=== PATIENT | female | born 1970 | race Caucasian/White ===

== ENCOUNTER 2020-05-22 10:00 | Outpatient (RCR) | payer OTHER, SELFPAY ==
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
--- NOTE | 2020-05-09 08:15 | PC.NURSE ---
case opened in tx tm
--- NOTE | 2020-05-09 09:13 | PM.EVENT ---
Event Note Date of Service: 05/08/2020 Event Note: Pt reports prior to re-starting regime she was using Amberen for perimenopausal sx. She found it helpful but stopped it when she restarted her psychotropic regime. She requested interaction check which was completed with no results which contraindicated she should not continue to use it.
--- NOTE | 2020-05-09 10:51 | PC.ADMIT ---
Patient is a 49 year old female who started the PHP program d/t mood instability. She was advised by her prescriber to attend PHP as patient is unable to work d/t her symptoms. Patient has a hx of being unable to control her anger and has not been able to maintain employment. Patient was advised by her prescriber to apply for disability as looking and maintaining a job is causing patient too much stress and anxiety. Patient stated that, giving uo work is gong to be difficult however she knows this is necessary d/t her symptoms. Patient looking for structure and coping skills to help build up her self esteem. Patient is alert and oriented x4. Calm and cooperative. Denied SI at current stating, I'm not wanting to kill myself, I am getting in a year on 06/15/2021. This is the only thing I have to look forward to . Patient stated she has a hx of self harm and reports the last incident was in 1999 however started scratching the palm of her hand recently. Asked what she could do instead of harming herself and patient stated, sitting on hand, chino art, I have 4 cats I can spend time with them . Patient gave verbal permission to email her a copy of her safety plan and agrees to utilize this if needed. Patient also stated her appetite has increased and has gained 10 lbs x one month. Stated, I'm eating like a pig . Patient has been hard on herself for this. We talked about taking small steps to healthier eating. Patient did identify her fiance' as supportive including helping her to maintain her sobriety from ETOH. She is having some cravings for marijuana for Fibromyalgia pain. Last used Mar 2020. Stated she has an appointment with her PCP on Wednesday and plans on reviewing pain issues with him. She is prescribed Methocarbamol however patient stated she uses sparingly as she does not want to run out. Last filled March. Medications reconciled with patient and patients pharmacy. Pt stated she no longer takes Adderall- Last filled 2019. Assessment completed via telephone d/t program platform.
[2020-05-09 11:12] VITALS: BMI 36.3
--- NOTE | 2020-05-10 15:52 | PC.NURSE ---
Reviewed treatment plan and discussed discharge date. Planned dc date will be 05/23/20
--- NOTE | 2020-05-15 15:04 | PC.NURSE ---
I called the client at her request. She reports scratching her arm when the group was discussing losses. We discussed her feelings of sadness about her grandmother critical illness and explored ways to manage safely. She agrees to talk with her boyfriend and to work on her chino art. She denies any suicidal ideation and commits to using skills.
--- NOTE | 2020-05-16 15:59 | PC.NURSE ---
Pt asked to speak with me on the screen after the 2nd group. She asked about the criteria for an inpatient psychiatric admission, and I told her what the criteria is and asked if she felt she needed it. She said she's not sure, and that she is only staying alive because of her fiance. She shared that she has had a suicide plan for many years, but has no intent to act on it. She said she is going grocery shopping after group. We discussed possibility of going to the hospital or calling crisis instead. She said she does feel safe today, but assured me that she will call crisis or go directly to the hospital if she starts to feel unsafe. She said the groups can be triggering, as others talk about returning to work and work related stress, while she has been told she cannot work by her therapist and med provider. Pt stated she knows the number for crisis and will use it if needed. She also said she knows how to go to the hospital and what to do if needed, as she has done this many times.
--- NOTE | 2020-05-16 16:07 | HO.PHPPROGNO ---
Subjective Subjective Date of Service: 05/16/20 Reason For Visit: F31.4 Interim History: Kayla reports ongoing depressive sx/lability. Main stressor is her grandmother she reports. Currently grandmother is in hospice after a CVA. With this being the holiday season, she is anticipating many changes in family traditions which she looks forward to due to grandmothers illness and COVID. She also reports feeling left out as she has not been asked to help with grandmother's care. Continued discussion of medications initiated upon her admission. Medication Compliance: Yes Side effects from medications: No Attending Groups: Yes Review of Systems Reports behavioral changes Psychiatric: Reports anxiety, Reports behavioral changes, Reports depression, Reports hopelessness, Reports irritability, Reports anhedonia, Reports mood swings and Reports suicidal ideation (passive SI) Mental Status Exam Mental Status Exam Patient Orientation: Person, Place, Time and Situation Level of Consciousness: Awake, Appropriate and Alert Patient Behavior: Appropriate Mood Description: Withdrawn and Depressed Affect Description: Flat Patient Cognition Impaired: No Ability to Follow Directions: Excellent Speech Pattern: Clear, Appropriate and Spontaneous Speech Memory Description: Intact Hallucinations: None Delusions: Not Present Thought Process: Intact Thought Content: positive for Suicidal Ideation (passive reported) Depressive Symptoms: Increased Irritability, Loss of Int. in Activity, Hopelessness, Isolating-Friends/Family, Unhappiness and Thoughts of /Suicide (passive) Judgement: Fair Diagnostics Vital Signs (24Hr): Body Mass Index 36.3 Assessment & Plan Patient educated on: medication risk/benefits and therapeutic strategies Informed Consent: further education needed Reason for contiued partial hosp. stay Substantial Risk for: harm to self, inability to function and rapid decompensation Certification I certify that partial hospital treatment is medically necessary due to the symptoms and problems resulting from the patient's mental illness and the failure to treat the patient at the partial hospital level of care would likely result in the patient requiring inpatient psychiatric care which could not be prevented at a less intensive level of care. Greater than 50% of the session was spent on counseling and/or coordination of care Discharge Plan Discharge Attending provider: Gian Gonzales Additional Instructions: 05/16/20: Begin Abilify 2 mg hs to assist with mood stability and augmentation of antidepressant. Medications: New aripiprazole [Abilify] 2 mg tablet 2 mg PO BEDTIME Qty: 7 RF: 0 No Action Lamictal 150 mg 150 mg PO BID RF: 0 Prozac 20 mg 20 mg PO DAILY RF: 0 Topamax 100 mg 100 mg PO BEDTIME RF: 0 amitriptyline 25 mg 50 mg PO BEDTIME PRN (Reason: Insomnia) RF: 0 gabapentin 900 mg 900 mg PO TID RF: 0 hydroxyzine HCl 25 mg 25 mg PO BID RF: 0 methocarbamol 500 mg Tablet 500 mg PO BEDTIME PRN (Reason: Muscle Spasm) RF: 0 melatonin 5 mg Tablet,Chewable 5 mg PO BEDTIME PRN (Reason: Insomnia) RF: 0
--- NOTE | 2020-05-17 12:32 | PC.NURSE ---
Spoke with pt after she left treatment today due to receiving a call that her grandmother . She reported being safe currently but having fears that she will not be safe later. She reported her fiance was home at this time but he would be leaving for work. There is a roommate that lives with them that will be checking up on her. She reported her fiance will be taking the car keys with him as taking the car to drink would be part of a plan of self-harm. Provided [facility] crisis number and she agreed to be placed on alert with them.
--- NOTE | 2020-05-17 15:05 | PC.NURSE ---
I called Lo[facility] Isidro [facility] to discuss clients progress and question if PHP is too trigging for the client. I left a message to call back
--- NOTE | 2020-05-20 13:06 | PC.NURSE ---
Spoke with pt after community meeting to discuss oppositional behaviors within the meeting. Pt had refused to turn her camera on and state a goal for the day. Discussed these behaviors and why it is required to have your camera on during groups. Pt still refused. Attempted to ask if she was safe and if she could participate she became verbally aggressive, yelling at this clinician that she was struggling. Recommended going to the emergency room for a crisis evaluation. Pt adamantly refused stating she has a to go to on . She reported being safe until after the . She agreed to be taken to the emergency room immediately following the on . She reported her fiance was home with her for the next couple days and she would attempt PHP on Wednesday. She contracted for safety at least until after the on . She continues to remain on alert with [facility] Crisis.
--- NOTE | 2020-05-22 15:37 | PC.NURSE ---
Client was put on alert with [facility] crisis. In group she stated that she was not suicidal but was unsure about tomorrow when she attends her grandmother . She did state if need she would call crisis.
== END 2020-05-24 09:38 | disposition admitted as inpatient to this hospital (09) ==
LOC: HO.PHPA 10:00
PROVIDERS: Visit Provider Psychiatry & Neurology Psychiatry
DX: F31.4 Bipolar disorder, current episode depressed, severe, without psychotic features (principal)
CPT/HCPCS: 90792; 90853; 99214

== ENCOUNTER 2020-05-23 14:56 | Inpatient (IN) | payer OTHER, SELFPAY ==
[2020-05-23 15:24] VITALS: BP 153/90; PULSE 115; RESP 18; TEMP 36.9; O2SAT 98; BMI 36.3
--- NOTE | 2020-05-23 15:30 | ED.PSYCH ---
HPI - Psych General Chief Complaint: Psychiatric Symptoms Stated Complaint: crisis Time Seen by Provider: 05/23/20 15:29 Source: patient Mode of arrival: ambulatory Limitations: no limitations History of Present Illness MD complaint: feels depressed Onset (ago): day(s) (few) Duration: constant History of same: Yes Relieving factors: none Exacerbating factors: none Context: significant life stressor Associated psychiatric symptoms: depression and suicidal ideation Associated symptoms: other (scratched her Right upper arm) Treatments prior to arrival: none If self harm: admits thoughts of self harm and has plan Related Data Home Medications Medication Instructions Recorded Confirmed Lamictal 150 mg PO BID 05/09/20 05/09/20 Prozac 20 mg PO DAILY 05/09/20 05/09/20 Topamax 100 mg PO BEDTIME 05/09/20 05/09/20 amitriptyline 50 mg PO BEDTIME PRN 05/09/20 05/09/20 gabapentin 900 mg PO TID 05/09/20 05/09/20 hydroxyzine HCl 25 mg PO BID 05/09/20 05/09/20 melatonin 5 mg PO BEDTIME PRN 05/09/20 05/09/20 methocarbamol 500 mg PO BEDTIME PRN 05/09/20 05/09/20 Previous Rx's Medication Instructions Recorded aripiprazole [Abilify] 2 mg PO BEDTIME #7 tab 05/16/20 Allergies Allergy/AdvReac Type Severity Reaction Status Date / Time ibuprofen [Ibuprofen] Allergy Severe DIFFICULTY Unverified 03/21/20 17:02 BREATHING tramadol [Tramadol] Allergy Unknown RASH Unverified 03/21/20 17:02 Review of Systems Review of Systems: Constitutional : No Fever, No Chills ENT/Mouth : No Ear Pain, No Nasal Congestion, No sore throat Eyes: No Eye Pain, No Swelling, No Redness Cardiovascular : No Chest Pain, No SOB Respiratory : No Cough, No Sputum, No Dyspnea Gastrointestinal : No Nausea, No Vomiting, No Diarrhea, No Hematochezia, No Melena Genitourinary : No Dysuria, No Urinary Frequency, No Hematuria Musculoskeletal : No Myalgias Skin : No Skin Lesions, No rash Neuro : No Weakness, No Numbness, No Paresthesias, No Dizziness, No Headache Psych : positive Anxiety, positive Depression, positive SI no HI Heme/Lymph: No Lymphadenopathy Endocrine : No Polyuria, No Polydipsia All other systems reviewed and are negative [facility] Past Medical History Attestation statement: The following information was validated with the patient. Medical History Asthma Diarrhea Fibromyalgia IBS (irritable bowel syndrome) Surgical History History of partial hysterectomy Hx of appendectomy Hx of cholecystectomy Social History Social History Household Members: Significant Other Alcohol intake: former Smoking Status: Current some day smoker Smoked in Last 30 Days: Yes Use of substances other than those prescribed or required for medical reasons: Yes Substance Use Type: Marijuana Substance Use Frequency: Daily Last Used Substance: Hours (ago) Any prior treatment program specific to substance use: No Advance Directives: No Advance Directives Information Provided: Yes Physical Exam Vital Signs: Vital Signs: Last Vital Signs Temp 98.4 F 05/23/20 15:24 Pulse 115 H 05/23/20 15:24 Resp 18 05/23/20 15:24 BP 153/90 H 05/23/20 15:24 Pulse Ox 98 05/23/20 15:24 Body Mass Index 36.3 Appearance: Alert. Oriented X3. No acute distress. Eyes: Pupils equal, round and reactive to light. ENT: Pharynx normal. Neck: Normal inspection. Neck supple. CVS: Normal heart rate and rhythm. Pulses normal. Respiratory: No respiratory distress. Breath sounds normal. Abdomen: Soft and nontender. Skin: Skin warm and dry. Normal skin color. Normal skin turgor. Extremities: No lower extremity edema. No calf ttp superficial abrasions 4+ to RUE over bicep no signs of infection Neuro: Oriented X 3. No motor deficit. No sensory deficit. CN 2 -12 intact Psych: depressed, anxious, SI with plan did not disclose Course Course Course Narrative: signed out to Dr. Joyner pending [facility] and labs MDM - Psych MDM Narrative Medical decision making narrative: 49 yo female with depression here with depression and SI - needs wound care to self scratches R upper arm, labs, PO ativan for anxiety, BHN consult Discharge Plan Discharge Clinical Impression: Depression Qualifiers: Depression Type: unspecified Qualified Code(s): F32.9 - Major depressive disorder, single episode, unspecified Prescriptions: No Action Lamictal 150 mg 150 mg PO BID RF: 0 Prozac 20 mg 20 mg PO DAILY RF: 0 Topamax 100 mg 100 mg PO BEDTIME RF: 0 amitriptyline 25 mg 50 mg PO BEDTIME PRN (Reason: Insomnia) RF: 0 gabapentin 900 mg 900 mg PO TID RF: 0 hydroxyzine HCl 25 mg 25 mg PO BID RF: 0 methocarbamol 500 mg Tablet 500 mg PO BEDTIME PRN (Reason: Muscle Spasm) RF: 0 melatonin 5 mg Tablet,Chewable 5 mg PO BEDTIME PRN (Reason: Insomnia) RF: 0 aripiprazole [Abilify] 2 mg tablet 2 mg PO BEDTIME Qty: 7 RF: 0
[2020-05-23] MEDS: LORazepam 1 MG TABLET PO (16:14)
[2020-05-23 16:15] LABS: Amphetamine Screen Urine Not Detected (Not Detect); Barbiturates, Urine Not Detected (Not Detect); Benzodiazepines Screen Urine Not Detected (Not Detect); Cannabinoid Screen Urine POSITIVE (Not Detect); Cocaine Screen Urine Not Detected (Not Detect); Opiate Screen Urine Not Detected (Not Detect); Phencyclidine Screen Urine Not Detected (Not Detect)
[2020-05-23 16:34] LABS: Basophils Absolute Auto 0.1 X10*3/uL (0.0-0.2); Basophils Percent Auto 0.6 % (0-2); Eosinophils Absolute Auto 0.5 X10*3/uL (0.0-0.4); Eosinophils Percent Auto 6.4 % (0-4); Hematocrit 44.7 % (37-47); Hemoglobin 14.7 g/dl (12.0-16.0); Imm Gran Abs Auto 0.03 X10*3/uL (0.00-0.03); Imm Gran Pct Auto 0.4 % (0.0-0.4); Lymphocytes Absolute Auto 1.9 X10*3/uL (1.2-4.9); Lymphocytes Percent Auto 23.1 % (20-40); MANUAL DIFF FLAG NO; Mean Corpuscular HGB Conc 32.9 g/dl (31.0-35.0); Mean Corpuscular Hemoglobin 30.1 pg (27.0-33.0); Mean Corpuscular Volume 91.4 fL (80-98); Mean Platelet Volume 9.2 fL (9.4-12.3); Monocytes Absolute Auto 0.7 X10*3/uL (0.1-1.2); Monocytes Percent Auto 8.4 % (2-11); Neutrophils Percent Auto 61.1 % (45-73); Platelet Count 192 X10*3/uL (160-400); Red Blood Count 4.89 X10*6/uL (4.20-5.50); Red Cell Distribution Width 12.9 % (11.0-16.0); White Blood Count 8.1 X10*3/uL (4.8-10.8)
--- NOTE | 2020-05-23 16:49 | PC.NURSE ---
[facility] faxed and called, when asked for a time estimate on when they would be in to see PT [facility] stated it would be a while. Care team notified.
[2020-05-23 16:57] LABS: Alanine Aminotransferase 57 U/L (0-31); Albumin Level 3.9 g/dL (3.5-5.0); Alkaline Phosphatase 76 U/L (39-117); Anion Gap 14 (12-20); Aspartate Amino Transferase 45 U/L (5-31); Bilirubin Direct < 0.2 mg/dL (0.0-0.5); Bilirubin Total 0.6 mg/dL (0.0-1.0); Blood Urea Nitrogen 8 mg/dL (9-16); Calcium 8.5 mg/dL (8.4-10.2); Carbon Dioxide 23 mmol/L (22-29); Chloride 106 mmol/L (96-108); Creatinine Clr Calc Pharmacy 68.8; Estimated Glomerular Filt Rate 55; Glucose Random 85 mg/dL (60-115); Potassium 4.2 mmol/l (3.3-5.1); Sodium 139 mmol/L (135-145); Total Protein 6.6 g/dL (6.5-8.0)
--- NOTE | 2020-05-23 18:14 | ECG_ITS ---
Test Reason : CRISIS Blood Pressure : / mmHG Vent. Rate : 091 BPM Atrial Rate : 091 BPM P-R Int : 142 ms QRS Dur : 082 ms QT Int : 380 ms P-R-T Axes : 067 062 058 degrees QTc Int : 467 ms Normal sinus rhythm RSR' or QR pattern in V1 suggests right ventricular conduction delay Nonspecific ST abnormality Inferior leads Abnormal ECG When compared with ECG of 24-JUL-2015 14:14, Nonspecific T wave abnormality no longer evident in Inferior leads Referred By: Elizabet Joyner Electronically Signed By:MAIRA BARRAZA MD
[2020-05-23 19:08] LABS: COVID-19 Test Negative (Negative)
--- NOTE | 2020-05-23 19:08 | PC.NURSE ---
Report received. Pt resting in her room quietly. Calm and cooperative. Waiting to be transferred to .
--- NOTE | 2020-05-23 19:39 | MHC.CARE ---
CARE team notified of pt in ED awaiting crisis evaluation. [facility] consult was faxed and called to confirm, and it was reported that a clinician would not be available for a while. This casualty underwriter contacted [facility] to confirm that there wouldn't be a clinician available to assess pt within the next hour and what the reason is. [facility] materials management supervisor reported that the team was in the process of contacting pending referrals to determine whether assessments are still needed in order to assign clinicians that arrive for shift at 6pm, and that at the latest pt would be seen at 11pm. This casualty underwriter informed [facility] that due to their inability to have a clinician available to evaluate the pt within a reasonable amount of time that the evaluation will be completed by the CARE team, and the insurance company will need to be contacted. This casualty underwriter evaluated pt with plan for inpatient psychiatric admission. Pt has been accepted for admission to . Insurance authorization through [facility] in progress, awaiting callback.
[2020-05-23 21:20] VITALS: BP 126/75; PULSE 92; RESP 16; TEMP 36.2; O2SAT 97
[2020-05-23 21:24] VITALS: BP 126/82; PULSE 82; RESP 18; TEMP 37.1
[2020-05-23] MEDS: Amitriptyline HCl 25 MG TABLET 50 MG PO (22:29)
[2020-05-23] MEDS: hydrOXYzine HCL 25 MG TABLET PO (22:30)
[2020-05-23] MEDS: ARIPiprazole 2 MG TABLET PO (22:31)
[2020-05-23] MEDS: Topiramate 100 MG TABLET PO (22:31)
[2020-05-23] MEDS: Gabapentin 300 MG CAPSULE 900 MG PO (22:31)
--- NOTE | 2020-05-23 22:35 | PC.ADMIT ---
Pt is a 49 year old engaged, white female who self presented to ED seeking evaluation and treatemtn for worsening symptoms of depression marked by poor mood, anger and irritability, low motivation, loss of interest, difficulty concentrating, engagement in self harm, and increasing thoughts of suicide with plan to overdose with medications or jump from a bridge. Pt was encouraged to start treatment through PHP to prevent and inpt psych admission , which pt has been participating in for the past two weeks. Pt grandmother recently and this deeply affected pt. Pt had not taken meds in 6 mos due to no insurance and no job. Pt states she can be safe on the unit and come to staff. Pt denies AH/VH. Pt not having HI. Pt cooperative. Pt wants to get better to plan her wedding. Pt arrived on the unit at 2142. Pt shown unit and room.
[2020-05-24 06:13] VITALS: BP 126/75; PULSE 84; RESP 18; TEMP 36.4; O2SAT 98
[2020-05-24] MEDS: hydrOXYzine HCL 25 MG TABLET PO ×2 (08:55→20:50)
[2020-05-24] MEDS: FLUoxetine HCl 20 MG CAPSULE PO (08:55)
[2020-05-24] MEDS: Gabapentin 300 MG CAPSULE 900 MG PO ×3 (08:55→20:49)
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
[2020-05-24 09:16] LABS: Thyroid Stimulating Hormone 0.81 uIU/mL (0.32-4.0)
[2020-05-24 18:00] VITALS: BP 121/58; PULSE 89; TEMP 36.4
[2020-05-24] MEDS: lamoTRIgine 100 MG TABLET 300 MG PO (20:48)
[2020-05-24] MEDS: Topiramate 100 MG TABLET PO (20:50)
[2020-05-24] MEDS: ARIPiprazole 5 MG TABLET PO (20:50)
[2020-05-25 07:21] VITALS: BP 125/77; PULSE 88; TEMP 36.3
[2020-05-25] MEDS: FLUoxetine HCl 20 MG CAPSULE PO (08:59)
[2020-05-25] MEDS: Gabapentin 300 MG CAPSULE 900 MG PO ×3 (09:00→19:46)
[2020-05-25] MEDS: hydrOXYzine HCL 25 MG TABLET PO ×3 (09:01→21:47)
[2020-05-25 09:03] VITALS: O2SAT 99
[2020-05-25] MEDS: Acetaminophen 325 MG TABLET 650 MG PO (09:48)
--- NOTE | 2020-05-25 12:22 | P.PNPSI_ITS ---
Subjective Subjective Date of Service: 05/25/20 Reason For Visit: Bipolar depression Interim History: Case discussed with nursing staff Chart reviewed Vitals and labs reviewed Pt reports that she is still depressed but no longer with any SI, so at least that's gone. Pt feeling SOB and asked for albuterol inhaler which was ordered to good effect. Pt did not know Amitriptyline was a prn that needed to be asked for, she caption writer agreed to schedule it at bedtime. She reports she takes 2 [tabs] every night and asks to continue with this dose here. She also asks for lidocaine patch for fibromylagia pain. Pt is pleasant, calm and cooperative on approach; she is social in the milue and demonstrating appropriate behaviors. Medication Compliance: Yes Side effects from medications: No Attending Groups: Yes Mental Status Exam Mental Status Exam Patient Appearance: Well Grooomed (appropriately) Patient Orientation: Person, Place, Time and Situation Level of Consciousness: Awake and Appropriate Patient Behavior: Appropriate, Cooperative and Good Eye Contact Mood Description: Calm and Depressed Affect Description: Calm and Appropriate Patient Cognition Impaired: No Ability to Follow Directions: Excellent Speech Pattern: Clear Hallucinations: None Delusions: Not Present Thought Process: Intact, Goal Oriented and Linear Thought Content: positive for Intact, positive for Goal Oriented, positive for Linear and positive for Logical Depressive Symptoms: Insomnia, Increased Irritability, Muscle Pain, Unhappiness and Thoughts of /Suicide (previously but now resolved) Judgement: Fair Judgement and Insight: appears intact Diagnostics Vital Signs (24Hr): Vital Signs - 24 hr 05/24/20 18:00 05/25/20 07:21 05/25/20 09:03 Temperature 97.6 F 97.4 F Pulse Rate 89 88 Blood Pressure 121/58 L 125/77 Pulse Oximetry 99 Body Mass Index 36.3 Labs Results: 05/23/20 16:28 05/23/20 16:28 Labs: Laboratory Results - last 48 hr 05/23/20 05/23/20 05/23/20 15:35 16:28 16:28 WBC 8.1 RBC 4.89 Hgb 14.7 Hct 44.7 MCV 91.4 MCH 30.1 MCHC 32.9 RDW 12.9 Plt Count 192 MPV 9.2 L Immature Gran % (Auto) 0.4 Neut % (Auto) 61.1 Lymph % (Auto) 23.1 [place] % (Auto) 8.4 Eos % (Auto) 6.4 H Baso % (Auto) 0.6 Lymph # (Auto) 1.9 [place] # (Auto) 0.7 Eos # (Auto) 0.5 H Baso # (Auto) 0.1 Abs Immat Gran (auto) 0.03 Absolute Neuts (auto) 5.0 Absolute Nucleated RBC 0.000 Nucleated RBC % (auto) 0.0 Hold Blue Top SEE NOTE Sodium Potassium Chloride Carbon Dioxide Anion Gap BUN Creatinine Estim Creat Clear Calc Estimated GFR Random Glucose Calcium Total Bilirubin Direct Bilirubin AST ALT Alkaline Phosphatase Total Protein Albumin TSH Urine Opiates Screen Not Detected Ur Barbiturates Screen Not Detected Ur Phencyclidine Scrn Not Detected Ur Amphetamines Screen Not Detected U Benzodiazepines Scrn Not Detected Urine Cocaine Screen Not Detected U Marijuana (THC) Screen POSITIVE H COVID-19 (BABAR) COVID-[employer] [place] 05/23/20 05/23/20 05/24/20 16:28 18:37 08:04 WBC RBC Hgb Hct MCV MCH MCHC RDW Plt Count MPV Immature Gran % (Auto) Neut % (Auto) Lymph % (Auto) [place] % (Auto) Eos % (Auto) Baso % (Auto) Lymph # (Auto) [place] # (Auto) Eos # (Auto) Baso # (Auto) Abs Immat Gran (auto) Absolute Neuts (auto) Absolute Nucleated RBC Nucleated RBC % (auto) Hold Blue Top Sodium 139 Potassium 4.2 Chloride 106 Carbon Dioxide 23 Anion Gap 14 BUN 8 L Creatinine 1.06 Estim Creat Clear Calc 68.8 Estimated GFR 55 Random Glucose 85 Calcium 8.5 Total Bilirubin 0.6 Direct Bilirubin < 0.2 AST 45 H ALT 57 H Alkaline Phosphatase 76 Total Protein 6.6 Albumin 3.9 TSH 0.81 Urine Opiates Screen Ur Barbiturates Screen Ur Phencyclidine Scrn Ur Amphetamines Screen U Benzodiazepines Scrn Urine Cocaine Screen U Marijuana (THC) Screen COVID-19 (BABAR) Negative COVID-[employer] [place] See Note Medications Medications Current Medications Generic Name Dose Route Start Last Admin Trade Name Freq PRN Reason Stop Dose Admin Acetaminophen 650 mg 05/23/20 21:23 05/25/20 09:48 Acetaminophen 325 Mg Tablet PO 650 mg Q6H PRN Administration Headache/Pain Mild Scale (1-3) Al Hydroxide/Mg Hydroxide 30 ml 05/23/20 21:23 Magnesium Hydrox/Alum Hydrox 30 Ml Oral.Susp PO Q6H PRN Heartburn/Nausea Albuterol Sulfate 2 puff 05/25/20 12:04 Albuterol Sulfate 90 Mcg 8 Gm Inhaler INHALE RQ4H PRN Shortness of Breath Amitriptyline HCl 50 mg 05/25/20 21:00 Amitriptyline Hcl 25 Mg Tablet PO BEDTIME SASHA Aripiprazole 5 mg 05/24/20 21:00 05/24/20 20:50 Aripiprazole 5 Mg Tablet PO 5 mg BEDTIME SASHA Administration Fluoxetine HCl 20 mg 05/24/20 09:00 05/25/20 08:59 Fluoxetine Hcl 20 Mg Capsule PO 20 mg DAILY SASHA Administration Gabapentin 900 mg 05/23/20 21:32 05/25/20 09:00 Gabapentin 300 Mg Capsule PO 900 mg TID SASHA Administration Hydroxyzine HCl 25 mg 05/23/20 21:32 05/25/20 09:01 Hydroxyzine Hcl 25 Mg Tablet PO 25 mg BID SASHA Administration Hydroxyzine HCl 25 mg 05/23/20 21:23 Hydroxyzine Hcl 25 Mg Tablet PO BEDTIME PRN Anxiety Lamotrigine 300 mg 05/24/20 21:00 05/24/20 20:48 Lamotrigine 100 Mg Tablet PO 300 mg BEDTIME SASHA Administration Lidocaine 1 patch 05/25/20 12:07 Lidocaine 4 % Patch Adh..Patch TRANSDERMA DAILY PRN lower back pain Protocol Magnesium Hydroxide 30 ml 05/23/20 21:23 Milk Of Magnesia 30 Ml Oral.Susp PO DAILY PRN Constipation Melatonin 6 mg 05/23/20 21:34 Melatonin 3 Mg Tablet PO BEDTIME PRN Insomnia Nicotine Polacrilex 4 mg 05/23/20 21:30 Nicotine Polacrilex 2 Mg Gum BUCCAL Q2H PRN Nicotine Cravings Non-Formulary Medication 500 mg 05/23/20 21:32 Methocarbamol PO BEDTIME PRN Muscle Spasm Topiramate 100 mg 05/23/20 21:32 05/24/20 20:50 Topiramate 100 Mg Tablet PO 100 mg BEDTIME SASHA Administration Trazodone HCl 50 mg 05/23/20 21:23 Trazodone Hcl 50 Mg Tablet PO BEDTIME PRN Insomnia Allergies Allergies Allergy/AdvReac Type Severity Reaction Status Date / Time ibuprofen [Ibuprofen] Allergy Severe DIFFICULTY Unverified 03/21/20 17:02 BREATHING tramadol [Tramadol] Allergy Unknown RASH Unverified 03/21/20 17:02 Assessment & Plan Pt is a 49 female with hx of depression Pt remains depressed but SI has dissipated and she agrees that this is a sign of improved mood Added Lidocaine patch for fibromyalgia pain (currently lower back but can change location) Added albuterol inhaler for SOB Will schedule Amitriptyline at 50mg since this is what pt currently takes at home. Pt has multiple prns available for sleep otherwise, continue with primary teams treatment plan
[2020-05-25] MEDS: Albuterol Sulfate 90 MCG 8 GM INHALER 2 PUFF INHALE (13:17)
[2020-05-25] MEDS: Lidocaine 4 % Patch ADH..PATCH 1 PATCH TRANSDERMA (14:05)
[2020-05-25 18:00] VITALS: BP 113/60; PULSE 84; TEMP 36.6
[2020-05-25] MEDS: ARIPiprazole 5 MG TABLET PO (19:45)
[2020-05-25] MEDS: Amitriptyline HCl 25 MG TABLET 50 MG PO (19:46)
[2020-05-25] MEDS: lamoTRIgine 100 MG TABLET 300 MG PO (19:47)
[2020-05-25] MEDS: Topiramate 100 MG TABLET PO (19:47)
[2020-05-25] MEDS: traZODone HCL 50 MG TABLET PO (21:47)
[2020-05-25] MEDS: Melatonin 3 MG TABLET 6 MG PO (21:47)
[2020-05-26 06:00] VITALS: BP 103/58; PULSE 87; TEMP 36.4
[2020-05-26] MEDS: Gabapentin 300 MG CAPSULE 900 MG PO ×3 (08:32→21:02)
[2020-05-26] MEDS: FLUoxetine HCl 20 MG CAPSULE PO (08:33)
[2020-05-26] MEDS: hydrOXYzine HCL 25 MG TABLET PO ×3 (08:34→21:03)
[2020-05-26] MEDS: Acetaminophen 325 MG TABLET 650 MG PO (08:34)
--- NOTE | 2020-05-26 10:41 | HO.PSYCHPN ---
Subjective Subjective Date of Service: 05/26/20 Reason For Visit: Bipolar depression Interim History: Vitals reviewed: Labs reviewed Pt seen, chart reviewed and case discussed with nursing staff Pt is calm on approach. She continues to have insomnia and muscle aches due to fibromyalgia which she feels is helping maintain her depression. She re-opened an old self-inflicted wound last night out of frustration denies any SI or desire/intention to furhrter self harm (pt said it's been a long time since she superficially cut). Pt shared more about her recent hx of losing her beloved grandmother which was the trigger for this decompensation. She said her grandmother would have wanted her to go to hospital which pt did. Although she shared that upcoming holidays will be tough without her and other family due to pandemic, she also spoke about knowing she'll get over this episode. pt agreed to additional prn trazodone and additional prn Vistaril for anxiety Medication Compliance: Yes Side effects from medications: No Attending Groups: Yes Mental Status Exam Mental Status Exam Patient Appearance: Appropriate Patient Orientation: Person, Place, Time and Situation Level of Consciousness: Awake and Appropriate Patient Behavior: Appropriate, Self Manipulative and Good Eye Contact Mood Description: Calm and Depressed Affect Description: Calm, Appropriate and Depressed Ability to Follow Directions: Excellent Speech Pattern: Clear Hallucinations: None Delusions: Not Present Thought Process: Intact, Goal Oriented and Linear Thought Content: positive for Intact Depressive Symptoms: Insomnia and Unhappiness Judgement: Fair Judgement and Insight: appears intact Diagnostics Vital Signs (24Hr): Vital Signs - 24 hr 05/25/20 18:00 05/26/20 06:00 Temperature 97.9 F 97.6 F Pulse Rate 84 87 Blood Pressure 113/60 103/58 L Body Mass Index 36.3 Labs Results: 05/23/20 16:28 05/23/20 16:28 Medications Medications Current Medications Generic Name Dose Route Start Last Admin Trade Name Freq PRN Reason Stop Dose Admin Acetaminophen 650 mg 05/23/20 21:23 05/26/20 08:34 Acetaminophen 325 Mg Tablet PO 650 mg Q6H PRN Administration Headache/Pain Mild Scale (1-3) Al Hydroxide/Mg Hydroxide 30 ml 05/23/20 21:23 Magnesium Hydrox/Alum Hydrox 30 Ml Oral.Susp PO Q6H PRN Heartburn/Nausea Albuterol Sulfate 2 puff 05/25/20 12:04 05/25/20 13:17 Albuterol Sulfate 90 Mcg 8 Gm Inhaler INHALE 2 puff RQ4H PRN Administration Shortness of Breath Amitriptyline HCl 50 mg 05/25/20 21:00 05/25/20 19:46 Amitriptyline Hcl 25 Mg Tablet PO 50 mg BEDTIME SASHA Administration Aripiprazole 5 mg 05/24/20 21:00 05/25/20 19:45 Aripiprazole 5 Mg Tablet PO 5 mg BEDTIME SASHA Administration Fluoxetine HCl 20 mg 05/24/20 09:00 05/26/20 08:33 Fluoxetine Hcl 20 Mg Capsule PO 20 mg DAILY [facility]HA Administration Gabapentin 900 mg 05/23/20 21:32 05/26/20 08:32 Gabapentin 300 Mg Capsule PO 900 mg TID SASHA Administration Hydroxyzine HCl 25 mg 05/23/20 21:32 05/26/20 08:34 Hydroxyzine Hcl 25 Mg Tablet PO 25 mg BID SASHA Administration Hydroxyzine HCl 25 mg 05/23/20 21:23 05/25/20 21:47 Hydroxyzine Hcl 25 Mg Tablet PO 25 mg BEDTIME PRN Administration Anxiety Lamotrigine 300 mg 05/24/20 21:00 05/25/20 19:47 Lamotrigine 100 Mg Tablet PO 300 mg BEDTIME SASHA Administration Lidocaine 1 patch 05/25/20 14:00 05/25/20 14:05 Lidocaine 4 % Patch Adh..Patch TRANSDERMA 1 patch DAILY PRN Administration lower back pain Protocol Magnesium Hydroxide 30 ml 05/23/20 21:23 Milk Of Magnesia 30 Ml Oral.Susp PO DAILY PRN Constipation Melatonin 6 mg 05/23/20 21:34 05/25/20 21:47 Melatonin 3 Mg Tablet PO 6 mg BEDTIME PRN Administration Insomnia Nicotine Polacrilex 4 mg 05/23/20 21:30 Nicotine Polacrilex 2 Mg Gum BUCCAL Q2H PRN Nicotine Cravings Non-Formulary Medication 500 mg 05/23/20 21:32 Methocarbamol PO BEDTIME PRN Muscle Spasm Topiramate 100 mg 05/23/20 21:32 05/25/20 19:47 Topiramate 100 Mg Tablet PO 100 mg BEDTIME SASHA Administration Trazodone HCl 50 mg 05/23/20 21:23 05/25/20 21:47 Trazodone Hcl 50 Mg Tablet PO 50 mg BEDTIME PRN Administration Insomnia Allergies Allergies Allergy/AdvReac Type Severity Reaction Status Date / Time ibuprofen [Ibuprofen] Allergy Severe DIFFICULTY Unverified 03/21/20 17:02 BREATHING tramadol [Tramadol] Allergy Unknown RASH Unverified 03/21/20 17:02 Assessment & Plan Pt depressed and had a bout of superficial self harm overnight, but denies any SI or intent to further self harm saying it's now resolved. Pt does not need increased safety checks at this time. -will increase option for Trazodone including being able to take it up to 4am; pt says initial dose works but does not last and she needs more sleep to reduce symptoms of Fibromyalgia. -will add Cyclobenzaprine prn since patients home med od Methocarbamol is NF -Will increased option for Hydroxyzine by making it 25mg BID prn (up from just at bedtime prn) -Patient reports headache; she says she takes Excederin at home for headaches without any issues; she also says that she does not have an allergy to Ibuprofen, but rather her PCP/hosiery looper said to avoid it and take it seldomly due to kidney function. Pt told adjusto writer operator that PCP/hosiery looper said she could take an NSAID once in a while. PT is asking for Excedrin now; will add one time dose of aspirin in addition to pt's prn tylenol Greater than 50% of the session was spent on counseling and/or coordination of care
[2020-05-26] MEDS: Cyclobenzaprine HCl 10 MG TABLET PO ×2 (14:37→21:04)
[2020-05-26] MEDS: Aspirin 325 MG TABLET PO ×2 (14:39→14:48)
[2020-05-26] MEDS: Bacitracin Oint 14 GM TUBE 1 APPL TOPICAL ×2 (16:21→21:40)
[2020-05-26 18:00] VITALS: BP 112/68; PULSE 84; TEMP 37.1
[2020-05-26] MEDS: ARIPiprazole 5 MG TABLET PO (21:02)
[2020-05-26] MEDS: Melatonin 3 MG TABLET 6 MG PO (21:02)
[2020-05-26] MEDS: Amitriptyline HCl 25 MG TABLET 50 MG PO (21:03)
[2020-05-26] MEDS: lamoTRIgine 100 MG TABLET 300 MG PO (21:03)
[2020-05-26] MEDS: Topiramate 100 MG TABLET PO (21:04)
[2020-05-27] MEDS: hydrOXYzine HCL 25 MG TABLET PO ×3 (02:03→09:31)
[2020-05-27] MEDS: traZODone HCL 50 MG TABLET PO ×2 (02:03→23:49)
[2020-05-27 06:45] VITALS: BP 114/72; PULSE 79; RESP 18; TEMP 36.7
[2020-05-27] MEDS: Gabapentin 300 MG CAPSULE 900 MG PO ×3 (08:32→20:25)
[2020-05-27] MEDS: FLUoxetine HCl 20 MG CAPSULE PO (08:33)
[2020-05-27] MEDS: Bacitracin Oint 14 GM TUBE 1 APPL TOPICAL ×2 (08:34→20:40)
[2020-05-27] MEDS: Albuterol Sulfate 90 MCG 8 GM INHALER 2 PUFF INHALE (09:08)
[2020-05-27] MEDS: Cyclobenzaprine HCl 10 MG TABLET PO ×3 (09:13→20:23)
--- NOTE | 2020-05-27 09:14 | HO.PSYCHPN ---
Subjective Subjective Date of Service: 05/27/20 Reason For Visit: Bipolar depression Subjective Notes: Conditional Voluntary Interim History: Pt is calm on approach. She continues to have insomnia. She superficially scratched her arm. She states that she is struggling with her fiancee not being able to take Oli Antonia off and feeling that everything is ruined. We discussed her black and white thinking and how this creates problems for her. She did not find vistaril helpful and we agreed to an increase. In addition we agreed to increase abilify. Medication Compliance: Yes Side effects from medications: No Attending Groups: Yes Review of Systems Acute medical concerns: No Medical Review of Systems: unchanged Mental Status Exam Mental Status Exam Patient Appearance: Appropriate Patient Orientation: Person, Place, Time and Situation Level of Consciousness: Awake and Appropriate Patient Behavior: Appropriate and Good Eye Contact Mood Description: Calm and Depressed Affect Description: Calm, Appropriate and Depressed Ability to Follow Directions: Excellent Speech Pattern: Clear Memory Description: Intact Hallucinations: None Delusions: Not Present Thought Process: Intact, Goal Oriented and Linear Thought Content: positive for Intact, negative for Suicidal Ideation and negative for Homicidal Ideation Depressive Symptoms: Insomnia, Crying Spells, Hopelessness, Unhappiness and Thoughts of /Suicide Judgement: Fair Judgement and Insight: appears intact Diagnostics Vital Signs (24Hr): Vital Signs - 24 hr 05/26/20 18:00 05/27/20 06:45 Temperature 98.7 F 98.1 F Pulse Rate 84 79 Respiratory Rate 18 Blood Pressure 112/68 114/72 Body Mass Index 36.3 Labs Results: 05/23/20 16:28 05/23/20 16:28 Medications Medications Current Medications Generic Name Dose Route Start Last Admin Trade Name Freq PRN Reason Stop Dose Admin Acetaminophen 650 mg 05/23/20 21:23 05/26/20 08:34 Acetaminophen 325 Mg Tablet PO 650 mg Q6H PRN Administration Headache/Pain Mild Scale (1-3) Al Hydroxide/Mg Hydroxide 30 ml 05/23/20 21:23 Magnesium Hydrox/Alum Hydrox 30 Ml Oral.Susp PO Q6H PRN Heartburn/Nausea Albuterol Sulfate 2 puff 05/25/20 12:04 05/27/20 09:08 Albuterol Sulfate 90 Mcg 8 Gm Inhaler INHALE 2 puff RQ4H PRN Administration Shortness of Breath Amitriptyline HCl 50 mg 05/25/20 21:00 05/26/20 21:03 Amitriptyline Hcl 25 Mg Tablet PO 50 mg BEDTIME SASHA Administration Aripiprazole 5 mg 05/24/20 21:00 05/26/20 21:02 Aripiprazole 5 Mg Tablet PO 5 mg BEDTIME SASHA Administration Bacitracin 1 appl 05/26/20 15:00 05/27/20 08:34 Bacitracin Oint 14 Gm Tube TOPICAL 05/28/20 23:59 1 appl TID SASHA Administration Protocol Cyclobenzaprine HCl 10 mg 05/26/20 13:49 05/27/20 09:13 Cyclobenzaprine Hcl 10 Mg Tablet PO 10 mg TID PRN Administration fibromyalgia Fluoxetine HCl 20 mg 05/24/20 09:00 05/27/20 08:33 Fluoxetine Hcl 20 Mg Capsule PO 20 mg DAILY SASHA Administration Gabapentin 900 mg 05/23/20 21:32 05/27/20 08:32 Gabapentin 300 Mg Capsule PO 900 mg TID SASHA Administration Hydroxyzine HCl 25 mg 05/23/20 21:32 05/27/20 08:33 Hydroxyzine Hcl 25 Mg Tablet PO 25 mg BID SASHA Administration Hydroxyzine HCl 25 mg 05/26/20 13:53 05/27/20 02:03 Hydroxyzine Hcl 25 Mg Tablet PO 25 mg BID PRN Administration Anxiety Lamotrigine 300 mg 05/24/20 21:00 05/26/20 21:03 Lamotrigine 100 Mg Tablet PO 300 mg BEDTIME SASHA Administration Lidocaine 1 patch 05/25/20 14:00 05/25/20 14:05 Lidocaine 4 % Patch Adh..Patch TRANSDERMA 1 patch DAILY PRN Administration lower back pain Protocol Magnesium Hydroxide 30 ml 05/23/20 21:23 Milk Of Magnesia 30 Ml Oral.Susp PO DAILY PRN Constipation Melatonin 6 mg 05/23/20 21:34 05/26/20 21:02 Melatonin 3 Mg Tablet PO 6 mg BEDTIME PRN Administration Insomnia Nicotine Polacrilex 4 mg 05/23/20 21:30 Nicotine Polacrilex 2 Mg Gum BUCCAL Q2H PRN Nicotine Cravings Topiramate 100 mg 05/23/20 21:32 05/26/20 21:04 Topiramate 100 Mg Tablet PO 100 mg BEDTIME SASHA Administration Trazodone HCl 50 mg 05/23/20 21:23 05/27/20 02:03 Trazodone Hcl 50 Mg Tablet PO 50 mg BEDTIME PRN Administration Insomnia Allergies Allergies Allergy/AdvReac Type Severity Reaction Status Date / Time ibuprofen [Ibuprofen] Allergy Severe DIFFICULTY Unverified 03/21/20 17:02 BREATHING tramadol [Tramadol] Allergy Unknown RASH Unverified 03/21/20 17:02 Assessment & Plan Assessment & Plan (1) Bipolar 1 disorder, depressed, severe: Status: Acute Code(s): F31.4 - Bipolar disorder, current episode depressed, severe, without psychotic features Assessment and Plan: Increase abilify and vistaril CT treatment plan Greater than 50% of the session was spent on counseling and/or coordination of care Patient educated on: diagnosis and medication risk/benefits Informed Consent: further education needed Reason for contiued inpatient stay Substantial Risk for: harm to self and rapid decompensation
[2020-05-27] MEDS: hydrOXYzine HCL 25 MG TABLET 50 MG PO ×2 (14:01→20:25)
[2020-05-27] MEDS: Milk of Magnesia 30 ML ORAL.SUSP PO (14:01)
[2020-05-27 18:00] VITALS: BP 124/65; PULSE 98; TEMP 36.8
[2020-05-27 19:41] VITALS: BP 130/72; PULSE 88; TEMP 36.4
[2020-05-27] MEDS: ARIPiprazole 10 MG TABLET PO (20:23)
[2020-05-27] MEDS: lamoTRIgine 100 MG TABLET 300 MG PO (20:24)
[2020-05-27] MEDS: Amitriptyline HCl 25 MG TABLET 50 MG PO (20:25)
[2020-05-27] MEDS: Topiramate 100 MG TABLET PO (20:25)
[2020-05-27] MEDS: Melatonin 3 MG TABLET 6 MG PO (23:49)
[2020-05-28 05:47] VITALS: BP 111/59; PULSE 85; RESP 16; TEMP 36.6; O2SAT 98
[2020-05-28] MEDS: hydrOXYzine HCL 25 MG TABLET 50 MG PO ×4 (08:29→23:03)
[2020-05-28] MEDS: FLUoxetine HCl 20 MG CAPSULE PO (08:29)
[2020-05-28] MEDS: Gabapentin 300 MG CAPSULE 900 MG PO ×3 (08:30→21:05)
[2020-05-28] MEDS: Bacitracin Oint 14 GM TUBE 1 APPL TOPICAL ×2 (08:31→23:10)
[2020-05-28 08:33] LABS: Cholesterol 271 mg/dL; HDL Cholesterol 46 mg/dL; LDL Cholesterol Calculated 175 mg/dl; Triglycerides 252 mg/dL
[2020-05-28 08:39] LABS: Estimated Average Glucose 97 mg/dL
--- NOTE | 2020-05-28 09:19 | HO.PSYCHPN ---
Subjective Subjective Date of Service: 05/28/20 Reason For Visit: Bipolar depression Subjective Notes: Conditional Voluntary Interim History: Pt is calm on approach. She has not cut herself again. She continues to have thoughts of self harm, but is able to access some strategies to manage. She found the increase in vistaril helpful. She has tolerated the increase in abilify. She was encouraged to use her DBT skills. Medication Compliance: Yes Side effects from medications: No Attending Groups: Yes Review of Systems Acute medical concerns: No Medical Review of Systems: unchanged Mental Status Exam Mental Status Exam Patient Appearance: Appropriate Patient Orientation: Person, Place, Time and Situation Level of Consciousness: Awake and Appropriate Patient Behavior: Appropriate and Good Eye Contact Mood Description: Calm and Depressed Affect Description: Calm, Appropriate and Depressed Ability to Follow Directions: Excellent Speech Pattern: Clear Memory Description: Intact Hallucinations: None Delusions: Not Present Thought Process: Intact, Goal Oriented and Linear Thought Content: positive for Intact, negative for Suicidal Ideation and negative for Homicidal Ideation Depressive Symptoms: Insomnia, Crying Spells, Hopelessness, Unhappiness and Thoughts of /Suicide Judgement: Fair Judgement and Insight: appears intact Diagnostics Vital Signs (24Hr): Vital Signs - 24 hr 05/27/20 18:00 05/27/20 19:41 05/28/20 05:47 Temperature 98.2 F 97.6 F 97.9 F Pulse Rate 98 88 85 Respiratory Rate 16 Blood Pressure 124/65 130/72 111/59 L Pulse Oximetry 98 Body Mass Index 36.3 Labs Results: 05/23/20 16:28 05/23/20 16:28 Labs: Laboratory Results - last 48 hr 05/28/20 05/28/20 07:59 07:59 Estimat Average Glucose 97 Hemoglobin A1c % 5.0 Triglycerides 252 Cholesterol 271 LDL Cholesterol, Calc 175 HDL Cholesterol 46 Medications Medications Current Medications Generic Name Dose Route Start Last Admin Trade Name Freq PRN Reason Stop Dose Admin Acetaminophen 650 mg 05/23/20 21:23 05/26/20 08:34 Acetaminophen 325 Mg Tablet PO 650 mg Q6H PRN Administration Headache/Pain Mild Scale (1-3) Al Hydroxide/Mg Hydroxide 30 ml 05/23/20 21:23 Magnesium Hydrox/Alum Hydrox 30 Ml Oral.Susp PO Q6H PRN Heartburn/Nausea Albuterol Sulfate 2 puff 05/25/20 12:04 05/27/20 09:08 Albuterol Sulfate 90 Mcg 8 Gm Inhaler INHALE 2 puff RQ4H PRN Administration Shortness of Breath Amitriptyline HCl 50 mg 05/25/20 21:00 05/27/20 20:25 Amitriptyline Hcl 25 Mg Tablet PO 50 mg BEDTIME SASHA Administration Aripiprazole 10 mg 05/27/20 21:00 05/27/20 20:23 Aripiprazole 10 Mg Tablet PO 10 mg BEDTIME SASHA Administration Bacitracin 1 appl 05/27/20 21:00 05/28/20 08:31 Bacitracin Oint 14 Gm Tube TOPICAL 05/28/20 23:59 1 appl BID SASHA Administration Protocol Cyclobenzaprine HCl 10 mg 05/26/20 13:49 05/27/20 20:23 Cyclobenzaprine Hcl 10 Mg Tablet PO 10 mg TID PRN Administration fibromyalgia Fluoxetine HCl 20 mg 05/24/20 09:00 05/28/20 08:29 Fluoxetine Hcl 20 Mg Capsule PO 20 mg DAILY SASHA Administration Gabapentin 900 mg 05/23/20 21:32 05/28/20 08:30 Gabapentin 300 Mg Capsule PO 900 mg TID SASHA Administration Hydroxyzine HCl 50 mg 05/27/20 10:21 05/27/20 14:01 Hydroxyzine Hcl 25 Mg Tablet PO 50 mg BID PRN Administration Anxiety Hydroxyzine HCl 50 mg 05/27/20 21:00 05/28/20 08:29 Hydroxyzine Hcl 25 Mg Tablet PO 50 mg BID SASHA Administration Lamotrigine 300 mg 05/24/20 21:00 05/27/20 20:24 Lamotrigine 100 Mg Tablet PO 300 mg BEDTIME SASHA Administration Lidocaine 1 patch 05/25/20 14:00 05/25/20 14:05 Lidocaine 4 % Patch Adh..Patch TRANSDERMA 1 patch DAILY PRN Administration lower back pain Protocol Magnesium Hydroxide 30 ml 05/23/20 21:23 05/27/20 14:01 Milk Of Magnesia 30 Ml Oral.Susp PO 30 ml DAILY PRN Administration Constipation Melatonin 6 mg 05/23/20 21:34 05/27/20 23:49 Melatonin 3 Mg Tablet PO 6 mg BEDTIME PRN Administration Insomnia Nicotine Polacrilex 4 mg 05/23/20 21:30 Nicotine Polacrilex 2 Mg Gum BUCCAL Q2H PRN Nicotine Cravings Topiramate 100 mg 05/23/20 21:32 05/27/20 20:25 Topiramate 100 Mg Tablet PO 100 mg BEDTIME SASHA Administration Trazodone HCl 50 mg 05/23/20 21:23 05/27/20 23:49 Trazodone Hcl 50 Mg Tablet PO 50 mg BEDTIME PRN Administration Insomnia Allergies Allergies Allergy/AdvReac Type Severity Reaction Status Date / Time ibuprofen [Ibuprofen] Allergy Severe DIFFICULTY Unverified 03/21/20 17:02 BREATHING tramadol [Tramadol] Allergy Unknown RASH Unverified 03/21/20 17:02 Assessment & Plan Assessment & Plan (1) Bipolar 1 disorder, depressed, severe: Status: Acute Code(s): F31.4 - Bipolar disorder, current episode depressed, severe, without psychotic features Assessment and Plan: Continue current medications Encourage use of skills Greater than 50% of the session was spent on counseling and/or coordination of care Patient educated on: diagnosis and medication risk/benefits Informed Consent: further education needed Reason for contiued inpatient stay Substantial Risk for: harm to self and rapid decompensation
[2020-05-28] MEDS: Cyclobenzaprine HCl 10 MG TABLET PO ×2 (13:48→21:04)
[2020-05-28 18:00] VITALS: BP 106/59; PULSE 81; TEMP 36.4
[2020-05-28] MEDS: Amitriptyline HCl 25 MG TABLET 50 MG PO (21:03)
[2020-05-28] MEDS: lamoTRIgine 100 MG TABLET 300 MG PO (21:03)
[2020-05-28] MEDS: ARIPiprazole 10 MG TABLET PO (21:04)
[2020-05-28] MEDS: Topiramate 100 MG TABLET PO (21:05)
[2020-05-28] MEDS: Lidocaine 4 % Patch ADH..PATCH 1 PATCH TRANSDERMA (23:04)
[2020-05-29] MEDS: traZODone HCL 50 MG TABLET PO (03:34)
[2020-05-29 06:25] VITALS: BP 110/70; PULSE 92; RESP 18; TEMP 36.3
[2020-05-29] MEDS: FLUoxetine HCl 20 MG CAPSULE PO (08:32)
[2020-05-29] MEDS: Gabapentin 300 MG CAPSULE 900 MG PO ×3 (08:32→21:23)
[2020-05-29] MEDS: hydrOXYzine HCL 25 MG TABLET 50 MG PO ×2 (08:33→11:03)
--- NOTE | 2020-05-29 09:17 | P.PNPSI_ITS ---
Subjective Subjective Date of Service: 05/29/20 Reason For Visit: Bipolar depression Subjective Notes: Conditional Voluntary Interim History: Kayla has been managing and she has not harmed herself in the last 24 hours She does not feel that vistaril is helpful and we agreed to switch to klonopin. She complains of pain due to fibromyalgia but many treatment options have been exhausted. Klonopin may help Medication Compliance: Yes Side effects from medications: No Attending Groups: Yes Review of Systems Acute medical concerns: No Medical Review of Systems: unchanged Mental Status Exam Mental Status Exam Patient Appearance: Appropriate Patient Orientation: Person, Place, Time and Situation Level of Consciousness: Awake and Appropriate Patient Behavior: Appropriate and Good Eye Contact Mood Description: Calm and Depressed Affect Description: Calm, Appropriate and Depressed Ability to Follow Directions: Excellent Speech Pattern: Clear Memory Description: Intact Hallucinations: None Delusions: Not Present Thought Process: Intact, Goal Oriented and Linear Thought Content: positive for Intact, negative for Suicidal Ideation and negative for Homicidal Ideation Depressive Symptoms: Insomnia, Crying Spells, Hopelessness, Unhappiness and T houghts of /Suicide Judgement: Fair Judgement and Insight: appears intact Diagnostics Vital Signs (24Hr): Vital Signs - 24 hr 05/28/20 18:00 05/29/20 06:25 Temperature 97.6 F 97.3 F Pulse Rate 81 92 Respiratory Rate 18 Blood Pressure 106/59 L 110/70 Body Mass Index 36.3 Labs Results: 05/23/20 16:28 05/23/20 16:28 Labs: Laboratory Results - last 48 hr 05/28/20 05/28/20 07:59 07:59 Estimat Average Glucose 97 Hemoglobin A1c % 5.0 Triglycerides 252 Cholesterol 271 LDL Cholesterol, Calc 175 HDL Cholesterol 46 Medications Medications Current Medications Generic Name Dose Route Start Last Admin Trade Name Freq PRN Reason Stop Dose Admin Acetaminophen 650 mg 05/23/20 21:23 05/26/20 08:34 Acetaminophen 325 Mg Tablet PO 650 mg Q6H PRN Administration Headache/Pain Mild Scale (1-3) Al Hydroxide/Mg Hydroxide 30 ml 05/23/20 21:23 Magnesium Hydrox/Alum Hydrox 30 Ml Oral.Susp PO Q6H PRN Heartburn/Nausea Albuterol Sulfate 2 puff 05/25/20 12:04 05/27/20 09:08 Albuterol Sulfate 90 Mcg 8 Gm Inhaler INHALE 2 puff RQ4H PRN Administration Shortness of Breath Amitriptyline HCl 50 mg 05/25/20 21:00 05/28/20 21:03 Amitriptyline Hcl 25 Mg Tablet PO 50 mg BEDTIME SASHA Administration Aripiprazole 10 mg 05/27/20 21:00 05/28/20 21:04 Aripiprazole 10 Mg Tablet PO 10 mg BEDTIME SASHA Administration Cyclobenzaprine HCl 10 mg 05/26/20 13:49 05/28/20 21:04 Cyclobenzaprine Hcl 10 Mg Tablet PO 10 mg TID PRN Administration fibromyalgia Fluoxetine HCl 20 mg 05/24/20 09:00 05/29/20 08:32 Fluoxetine Hcl 20 Mg Capsule PO 20 mg DAILY SASHA Administration Gabapentin 900 mg 05/23/20 21:32 05/29/20 08:32 Gabapentin 300 Mg Capsule PO 900 mg TID SASHA Administration Hydroxyzine HCl 50 mg 05/27/20 10:21 05/28/20 23:03 Hydroxyzine Hcl 25 Mg Tablet PO 50 mg BID PRN Administration Anxiety Hydroxyzine HCl 50 mg 05/27/20 21:00 05/29/20 08:33 Hydroxyzine Hcl 25 Mg Tablet PO 50 mg BID SASHA Administration Lamotrigine 300 mg 05/24/20 21:00 05/28/20 21:03 Lamotrigine 100 Mg Tablet PO 300 mg BEDTIME SASHA Administration Lidocaine 1 patch 05/25/20 14:00 05/28/20 23:04 Lidocaine 4 % Patch Adh..Patch TRANSDERMA 1 patch DAILY PRN Administration lower back pain Protocol Magnesium Hydroxide 30 ml 05/23/20 21:23 05/27/20 14:01 Milk Of Magnesia 30 Ml Oral.Susp PO 30 ml DAILY PRN Administration Constipation Melatonin 6 mg 05/23/20 21:34 05/27/20 23:49 Melatonin 3 Mg Tablet PO 6 mg BEDTIME PRN Administration Insomnia Nicotine Polacrilex 4 mg 05/23/20 21:30 Nicotine Polacrilex 2 Mg Gum BUCCAL Q2H PRN Nicotine Cravings Topiramate 100 mg 05/23/20 21:32 05/28/20 21:05 Topiramate 100 Mg Tablet PO 100 mg BEDTIME SASHA Administration Trazodone HCl 50 mg 05/23/20 21:23 05/29/20 03:34 Trazodone Hcl 50 Mg Tablet PO 50 mg BEDTIME PRN Administration Insomnia Allergies Allergies Allergy/AdvReac Type Severity Reaction Status Date / Time ibuprofen [Ibuprofen] Allergy Severe DIFFICULTY Unverified 03/21/20 17:02 BREATHING tramadol [Tramadol] Allergy Unknown RASH Unverified 03/21/20 17:02 Assessment & Plan Assessment & Plan (1) Bipolar 1 disorder, depressed, severe: Status: Acute Code(s): F31.4 - Bipolar disorder, current episode depressed, severe, without psychotic features Assessment and Plan: Add clonazepam CT treatment plan Greater than 50% of the session was spent on counseling and/or coordination of care Patient educated on: diagnosis and medication risk/benefits Informed Consent: further education needed Reason for contiued inpatient stay Substantial Risk for: harm to self and rapid decompensation
[2020-05-29] MEDS: Cyclobenzaprine HCl 10 MG TABLET PO ×3 (09:42→21:24)
[2020-05-29] MEDS: Lidocaine 4 % Patch ADH..PATCH 1 PATCH TRANSDERMA (17:52)
[2020-05-29 18:00] VITALS: BP 146/64; PULSE 87; TEMP 36.3
[2020-05-29] MEDS: ARIPiprazole 10 MG TABLET PO (21:23)
[2020-05-29] MEDS: lamoTRIgine 100 MG TABLET 300 MG PO (21:23)
[2020-05-29] MEDS: Topiramate 100 MG TABLET PO (21:23)
[2020-05-29] MEDS: clonazePAM 1 MG TABLET PO (21:23)
[2020-05-29] MEDS: Amitriptyline HCl 25 MG TABLET 50 MG PO (21:23)
[2020-05-29] MEDS: Milk of Magnesia 30 ML ORAL.SUSP PO (21:24)
[2020-05-30 06:13] VITALS: BP 119/68; PULSE 76; RESP 16; TEMP 36.2; O2SAT 97
[2020-05-30] MEDS: Albuterol Sulfate 90 MCG 8 GM INHALER 2 PUFF INHALE (06:50)
[2020-05-30 07:00] VITALS: BMI 37.5
[2020-05-30] MEDS: clonazePAM 1 MG TABLET PO ×3 (09:26→21:48)
[2020-05-30] MEDS: Gabapentin 300 MG CAPSULE 900 MG PO ×3 (09:27→21:48)
[2020-05-30] MEDS: FLUoxetine HCl 20 MG CAPSULE PO (09:28)
[2020-05-30] MEDS: Cyclobenzaprine HCl 10 MG TABLET PO ×3 (09:28→21:48)
--- NOTE | 2020-05-30 13:38 | P.PNPSI_ITS ---
Subjective Subjective Date of Service: 05/30/20 Reason For Visit: Bipolar depression Subjective Notes: Conditional Voluntary Interim History: Kayla is feeling some improvement. Her mood is brighter and she is more engaged. She does continue to have body pain, but this is slightly less with klonopin. She has some SOB and requests flovent inhaler Medication Compliance: Yes Side effects from medications: No Attending Groups: Yes Review of Systems Acute medical concerns: No Medical Review of Systems: unchanged Mental Status Exam Mental Status Exam Patient Appearance: Appropriate Patient Orientation: Person, Place, Time and Situation Level of Consciousness: Awake and Appropriate Patient Behavior: Appropriate and Good Eye Contact Mood Description: Calm and Depressed Affect Description: Calm, Appropriate and Depressed Ability to Follow Directions: Excellent Speech Pattern: Clear Memory Description: Intact Hallucinations: None Delusions: Not Present Thought Process: Intact, Goal Oriented and Linear Thought Content: positive for Intact, negative for Suicidal Ideation and neg ative for Homicidal Ideation Depressive Symptoms: Insomnia and Crying Spells Judgement: Fair Judgement and Insight: appears intact Diagnostics Vital Signs (24Hr): Vital Signs - 24 hr 05/29/20 18:00 05/30/20 06:13 Temperature 97.3 F 97.1 F Pulse Rate 87 76 Respiratory Rate 16 Blood Pressure 146/64 H 119/68 Pulse Oximetry 97 Body Mass Index 37.5 Labs Results: 05/23/20 16:28 05/23/20 16:28 Medications Medications Current Medications Generic Name Dose Route Start Last Admin Trade Name Freq PRN Reason Stop Dose Admin Acetaminophen 650 mg 05/23/20 21:23 05/26/20 08:34 Acetaminophen 325 Mg Tablet PO 650 mg Q6H PRN Administration Headache/Pain Mild Scale (1-3) Al Hydroxide/Mg Hydroxide 30 ml 05/23/20 21:23 Magnesium Hydrox/Alum Hydrox 30 Ml Oral.Susp PO Q6H PRN Heartburn/Nausea Albuterol Sulfate 2 puff 05/25/20 12:04 05/30/20 06:50 Albuterol Sulfate 90 Mcg 8 Gm Inhaler INHALE 2 puff RQ4H PRN Administration Shortness of Breath Amitriptyline HCl 50 mg 05/25/20 21:00 05/29/20 21:23 Amitriptyline Hcl 25 Mg Tablet PO 50 mg BEDTIME SASHA Administration Aripiprazole 10 mg 05/27/20 21:00 05/29/20 21:23 Aripiprazole 10 Mg Tablet PO 10 mg BEDTIME SASHA Administration Clonazepam 1 mg 05/29/20 21:00 05/30/20 09:26 Clonazepam 1 Mg Tablet PO 1 mg TID SASHA Administration Cyclobenzaprine HCl 10 mg 05/26/20 13:49 05/30/20 09:28 Cyclobenzaprine Hcl 10 Mg Tablet PO 10 mg TID PRN Administration fibromyalgia Fluoxetine HCl 20 mg 05/24/20 09:00 05/30/20 09:28 Fluoxetine Hcl 20 Mg Capsule PO 20 mg DAILY SASHA Administration Fluticasone Propionate 2 puff 05/30/20 11:05 Fluticasone Propionate 100 Mcg Blst.W.Dev INHALE RBID [facility] Gabapentin 900 mg 05/23/20 21:32 05/30/20 09:27 Gabapentin 300 Mg Capsule PO 900 mg TID SASHA Administration Lamotrigine 300 mg 05/24/20 21:00 05/29/20 21:23 Lamotrigine 100 Mg Tablet PO 300 mg BEDTIME SASHA Administration Lidocaine 1 patch 05/25/20 14:00 05/29/20 17:52 Lidocaine 4 % Patch Adh..Patch TRANSDERMA 1 patch DAILY PRN Administration lower back pain Protocol Magnesium Hydroxide 30 ml 05/23/20 21:23 05/29/20 21:24 Milk Of Magnesia 30 Ml Oral.Susp PO 30 ml DAILY PRN Administration Constipation Melatonin 6 mg 05/23/20 21:34 05/27/20 23:49 Melatonin 3 Mg Tablet PO 6 mg BEDTIME PRN Administration Insomnia Nicotine Polacrilex 4 mg 05/23/20 21:30 Nicotine Polacrilex 2 Mg Gum BUCCAL Q2H PRN Nicotine Cravings Topiramate 100 mg 05/23/20 21:32 05/29/20 21:23 Topiramate 100 Mg Tablet PO 100 mg BEDTIME SASHA Administration Trazodone HCl 50 mg 05/23/20 21:23 05/29/20 03:34 Trazodone Hcl 50 Mg Tablet PO 50 mg BEDTIME PRN Administration Insomnia Allergies Allergies Allergy/AdvReac Type Severity Reaction Status Date / Time ibuprofen [Ibuprofen] Allergy Severe DIFFICULTY Unverified 03/21/20 17:02 BREATHING tramadol [Tramadol] Allergy Unknown RASH Unverified 03/21/20 17:02 Assessment & Plan Assessment & Plan (1) Bipolar 1 disorder, depressed, severe: Status: Acute Code(s): F31.4 - Bipolar disorder, current episode depressed, severe, without psychotic features Assessment and Plan: CT current treatment plan Greater than 50% of the session was spent on counseling and/or coordination of care Patient educated on: diagnosis and medication risk/benefits Informed Consent: further education needed Reason for contiued inpatient stay Substantial Risk for: rapid decompensation
[2020-05-30] MEDS: Amitriptyline HCl 25 MG TABLET 50 MG PO (21:48)
[2020-05-30] MEDS: ARIPiprazole 10 MG TABLET PO (21:48)
[2020-05-30] MEDS: Topiramate 100 MG TABLET PO (21:48)
[2020-05-30] MEDS: lamoTRIgine 100 MG TABLET 300 MG PO (21:48)
[2020-05-30] MEDS: Fluticasone Propionate 100 MCG BLST.W.DEV 2 PUFF INHALE (21:49)
[2020-05-30 21:55] VITALS: BP 120/76; PULSE 89; TEMP 37
[2020-05-30] MEDS: Acetaminophen 325 MG TABLET 650 MG PO (22:56)
[2020-05-30] MEDS: traZODone HCL 50 MG TABLET PO (22:57)
[2020-05-31 06:59] VITALS: BP 114/74; PULSE 85; TEMP 36.3
[2020-05-31] MEDS: Fluticasone Propionate 100 MCG BLST.W.DEV 2 PUFF INHALE (09:18)
[2020-05-31] MEDS: FLUoxetine HCl 20 MG CAPSULE PO (09:19)
[2020-05-31] MEDS: Gabapentin 300 MG CAPSULE 900 MG PO ×3 (09:19→20:13)
[2020-05-31] MEDS: clonazePAM 1 MG TABLET PO ×3 (09:19→20:13)
[2020-05-31] MEDS: Cyclobenzaprine HCl 10 MG TABLET PO ×2 (09:34→14:36)
[2020-05-31] MEDS: Albuterol Sulfate 90 MCG 8 GM INHALER 2 PUFF INHALE ×2 (09:35→14:37)
[2020-05-31] MEDS: Acetaminophen 325 MG TABLET 650 MG PO ×2 (11:56→18:08)
--- NOTE | 2020-05-31 15:01 | HO.PSYCHPN ---
Subjective Subjective Date of Service: 05/31/20 Reason For Visit: Bipolar depression Subjective Notes: Conditional Voluntary Interim History: Kayla was struggling with a flare of fibromyalgia. She also has had worse asthma. She attributes both to the weather. Her mood is improving and she is feeling that she will be ready to go home on 06/04/20, which also happens to be her birthday. Medication Compliance: Yes Side effects from medications: No Attending Groups: Yes Review of Systems Acute medical concerns: No Medical Review of Systems: unchanged Mental Status Exam Mental Status Exam Patient Appearance: Appropriate Patient Orientation: Person, Place, Time and Situation Level of Consciousness: Awake and Appropriate Patient Behavior: Appropriate and Good Eye Contact Mood Description: Calm and Depressed Affect Description: Calm, Appropriate and Depressed Ability to Follow Directions: Excellent Speech Pattern: Clear Memory Description: Intact Hallucinations: None Delusions: Not Present Thought Process: Intact, Goal Oriented and Linear Thought Content: positive for Intact, negative for Suicidal Ideation and negative for Homicidal Ideation Depressive Symptoms: Insomnia and Crying Spells Judgement: Fair Judgement and Insight: appears intact Diagnostics Vital Signs (24Hr): Vital Signs - 24 hr 05/30/20 21:55 05/31/20 06:59 Temperature 98.6 F 97.3 F Pulse Rate 89 85 Blood Pressure 120/76 114/74 Body Mass Index 37.5 Labs Results: 05/23/20 16:28 05/23/20 16:28 Medications Medications Current Medications Generic Name Dose Route Start Last Admin Trade Name Freq PRN Reason Stop Dose Admin Acetaminophen 650 mg 05/23/20 21:23 05/31/20 11:56 Acetaminophen 325 Mg Tablet PO 650 mg Q6H PRN Administration Headache/Pain Mild Scale (1-3) Al Hydroxide/Mg Hydroxide 30 ml 05/23/20 21:23 Magnesium Hydrox/Alum Hydrox 30 Ml Oral.Susp PO Q6H PRN Heartburn/Nausea Albuterol Sulfate 2 puff 05/25/20 12:04 05/31/20 14:37 Albuterol Sulfate 90 Mcg 8 Gm Inhaler INHALE 2 puff RQ4H PRN Administration Shortness of Breath Amitriptyline HCl 50 mg 05/25/20 21:00 05/30/20 21:48 Amitriptyline Hcl 25 Mg Tablet PO 50 mg BEDTIME SASHA Administration Aripiprazole 10 mg 05/27/20 21:00 05/30/20 21:48 Aripiprazole 10 Mg Tablet PO 10 mg BEDTIME SASHA Administration Clonazepam 1 mg 05/29/20 21:00 05/31/20 09:19 Clonazepam 1 Mg Tablet PO 1 mg TID SASHA Administration Cyclobenzaprine HCl 10 mg 05/26/20 13:49 05/31/20 14:36 Cyclobenzaprine Hcl 10 Mg Tablet PO 10 mg TID PRN Administration fibromyalgia Fluoxetine HCl 20 mg 05/24/20 09:00 05/31/20 09:19 Fluoxetine Hcl 20 Mg Capsule PO 20 mg DAILY SASHA Administration Fluticasone Propionate 2 puff 05/30/20 11:05 05/31/20 09:18 Fluticasone Propionate 100 Mcg Blst.W.Dev INHALE 2 puff RBID SASHA Administration Gabapentin 900 mg 05/23/20 21:32 05/31/20 14:37 Gabapentin 300 Mg Capsule PO 900 mg TID SASHA Administration Lamotrigine 300 mg 05/24/20 21:00 05/30/20 21:48 Lamotrigine 100 Mg Tablet PO 300 mg BEDTIME SASHA Administration Lidocaine 1 patch 05/25/20 14:00 05/29/20 17:52 Lidocaine 4 % Patch Adh..Patch TRANSDERMA 1 patch DAILY PRN Administration lower back pain Protocol Magnesium Hydroxide 30 ml 05/23/20 21:23 05/29/20 21:24 Milk Of Magnesia 30 Ml Oral.Susp PO 30 ml DAILY PRN Administration Constipation Melatonin 6 mg 05/23/20 21:34 05/27/20 23:49 Melatonin 3 Mg Tablet PO 6 mg BEDTIME PRN Administration Insomnia Nicotine Polacrilex 4 mg 05/23/20 21:30 Nicotine Polacrilex 2 Mg Gum BUCCAL Q2H PRN Nicotine Cravings Topiramate 100 mg 05/23/20 21:32 05/30/20 21:48 Topiramate 100 Mg Tablet PO 100 mg BEDTIME SASHA Administration Trazodone HCl 50 mg 05/23/20 21:23 05/30/20 22:57 Trazodone Hcl 50 Mg Tablet PO 50 mg BEDTIME PRN Administration Insomnia Allergies Allergies Allergy/AdvReac Type Severity Reaction Status Date / Time ibuprofen [Ibuprofen] Allergy Severe DIFFICULTY Unverified 03/21/20 17:02 BREATHING tramadol [Tramadol] Allergy Unknown RASH Unverified 09/17/20 17:02 Assessment & Plan Assessment & Plan (1) Bipolar 1 disorder, depressed, severe: Status: Acute Code(s): F31.4 - Bipolar disorder, current episode depressed, severe, without psychotic features Assessment and Plan: CT current treatment plan Greater than 50% of the session was spent on counseling and/or coordination of care Patient educated on: diagnosis and medication risk/benefits Informed Consent: further education needed Reason for contiued inpatient stay Substantial Risk for: inability to function and rapid decompensation
[2020-05-31 18:00] VITALS: BP 150/70; PULSE 86; TEMP 36.2
[2020-05-31] MEDS: Amitriptyline HCl 25 MG TABLET 50 MG PO (20:13)
[2020-05-31] MEDS: lamoTRIgine 100 MG TABLET 300 MG PO (20:13)
[2020-05-31] MEDS: ARIPiprazole 10 MG TABLET PO (20:13)
[2020-05-31] MEDS: Topiramate 100 MG TABLET PO (20:13)
[2020-05-31] MEDS: Lidocaine 4 % Patch ADH..PATCH 1 PATCH TRANSDERMA (21:03)
[2020-06-01] MEDS: Albuterol Sulfate 90 MCG 8 GM INHALER 2 PUFF INHALE ×2 (01:33→15:23)
[2020-06-01] MEDS: traZODone HCL 50 MG TABLET PO ×2 (01:54→03:53)
[2020-06-01 01:56] VITALS: BP 126/67; PULSE 102; RESP 18; TEMP 36.6; O2SAT 97
[2020-06-01 06:00] VITALS: BP 137/71; PULSE 102; RESP 18
[2020-06-01] MEDS: FLUoxetine HCl 20 MG CAPSULE PO (09:00)
[2020-06-01] MEDS: clonazePAM 1 MG TABLET PO ×3 (09:00→23:02)
[2020-06-01] MEDS: Fluticasone Propionate 100 MCG BLST.W.DEV 2 PUFF INHALE ×2 (09:01→23:06)
[2020-06-01] MEDS: Gabapentin 300 MG CAPSULE 900 MG PO ×3 (09:01→23:02)
[2020-06-01] MEDS: Cyclobenzaprine HCl 10 MG TABLET PO ×2 (09:12→15:26)
[2020-06-01] MEDS: Acetaminophen 325 MG TABLET 650 MG PO (10:23)
[2020-06-01] MEDS: Lidocaine 4 % Patch ADH..PATCH 1 PATCH TRANSDERMA ×2 (11:16→23:07)
--- NOTE | 2020-06-01 13:14 | HO.PSYCHPN ---
Subjective Subjective Date of Service: 06/01/20 Reason For Visit: Bipolar depression Subjective Notes: Conditional Voluntary Interim History: Kayla had difficulty with sleep last night but she continues with a slow and steady improvement. She has no self harm. She wants to aim for 06/04/20 discharge. Medication Compliance: Yes Side effects from medications: No Attending Groups: Yes Review of Systems Acute medical concerns: No Medical Review of Systems: unchanged Mental Status Exam Mental Status Exam Patient Appearance: Appropriate Patient Orientation: Person, Place, Time and Situation Level of Consciousness: Awake and Appropriate Patient Behavior: Appropriate and Good Eye Contact Mood Description: Calm and Depressed Affect Description: Calm, Appropriate and Depressed Ability to Follow Directions: Excellent Speech Pattern: Clear Memory Description: Intact Hallucinations: None Delusions: Not Present Thought Process: Intact, Goal Oriented and Linear Thought Content: positive for Intact, negative for Suicidal Ideation and negative for Homicidal Ideation Depressive Symptoms: Insomnia and Crying Spells Judgement: Fair Judgement and Insight: appears intact Diagnostics Vital Signs (24Hr): Vital Signs - 24 hr 05/31/20 18:00 06/01/20 01:56 06/01/20 06:00 Temperature 97.2 F 97.8 F Pulse Rate 86 102 H 102 H Respiratory Rate 18 18 Blood Pressure 150/70 H 126/67 137/71 Pulse Oximetry 97 Body Mass Index 37.5 Labs Results: 05/23/20 16:28 05/23/20 16:28 Medications Medications Current Medications Generic Name Dose Route Start Last Admin Trade Name Freq PRN Reason Stop Dose Admin Acetaminophen 650 mg 05/23/20 21:23 06/01/20 10:23 Acetaminophen 325 Mg Tablet PO 650 mg Q6H PRN Administration Headache/Pain Mild Scale (1-3) Al Hydroxide/Mg Hydroxide 30 ml 05/23/20 21:23 Magnesium Hydrox/Alum Hydrox 30 Ml Oral.Susp PO Q6H PRN Heartburn/Nausea Albuterol Sulfate 2 puff 05/25/20 12:04 06/01/20 01:33 Albuterol Sulfate 90 Mcg 8 Gm Inhaler INHALE 2 puff RQ4H PRN Administration Shortness of Breath Amitriptyline HCl 50 mg 05/25/20 21:00 05/31/20 20:13 Amitriptyline Hcl 25 Mg Tablet PO 50 mg BEDTIME SASHA Administration Aripiprazole 10 mg 05/27/20 21:00 05/31/20 20:13 Aripiprazole 10 Mg Tablet PO 10 mg BEDTIME SASHA Administration Clonazepam 1 mg 05/29/20 21:00 06/01/20 09:00 Clonazepam 1 Mg Tablet PO 1 mg TID SASHA Administration Cyclobenzaprine HCl 10 mg 05/26/20 13:49 06/01/20 09:12 Cyclobenzaprine Hcl 10 Mg Tablet PO 10 mg TID PRN Administration fibromyalgia Fluoxetine HCl 20 mg 05/24/20 09:00 06/01/20 09:00 Fluoxetine Hcl 20 Mg Capsule PO 20 mg DAILY SASHA Administration Fluticasone Propionate 2 puff 05/30/20 11:05 06/01/20 09:01 Fluticasone Propionate 100 Mcg Blst.W.Dev INHALE 2 puff RBID SASHA Administration Gabapentin 900 mg 05/23/20 21:32 06/01/20 09:01 Gabapentin 300 Mg Capsule PO 900 mg TID SASHA Administration Lamotrigine 300 mg 05/24/20 21:00 05/31/20 20:13 Lamotrigine 100 Mg Tablet PO 300 mg BEDTIME SASHA Administration Lidocaine 1 patch 05/25/20 14:00 06/01/20 11:16 Lidocaine 4 % Patch Adh..Patch TRANSDERMA 1 patch DAILY PRN Administration lower back pain Protocol Magnesium Hydroxide 30 ml 05/23/20 21:23 05/29/20 21:24 Milk Of Magnesia 30 Ml Oral.Susp PO 30 ml DAILY PRN Administration Constipation Melatonin 6 mg 05/23/20 21:34 05/27/20 23:49 Melatonin 3 Mg Tablet PO 6 mg BEDTIME PRN Administration Insomnia Nicotine Polacrilex 4 mg 05/23/20 21:30 Nicotine Polacrilex 2 Mg Gum BUCCAL Q2H PRN Nicotine Cravings Topiramate 100 mg 05/23/20 21:32 05/31/20 20:13 Topiramate 100 Mg Tablet PO 100 mg BEDTIME SASHA Administration Trazodone HCl 50 mg 05/23/20 21:23 06/01/20 03:53 Trazodone Hcl 50 Mg Tablet PO 50 mg BEDTIME PRN Administration Insomnia Allergies Allergies Allergy/AdvReac Type Severity Reaction Status Date / Time ibuprofen [Ibuprofen] Allergy Severe DIFFICULTY Unverified 03/21/20 17:02 BREATHING tramadol [Tramadol] Allergy Unknown RASH Unverified 03/21/20 17:02 Assessment & Plan Assessment & Plan (1) Bipolar 1 disorder, depressed, severe: Status: Acute Code(s): F31.4 - Bipolar disorder, current episode depressed, severe, without psychotic features Assessment and Plan: Continue current treatment plan Greater than 50% of the session was spent on counseling and/or coordination of care Patient educated on: diagnosis and medication risk/benefits Informed Consent: further education needed Reason for contiued inpatient stay Substantial Risk for: rapid decompensation
[2020-06-01] MEDS: Topiramate 100 MG TABLET PO (23:02)
[2020-06-01] MEDS: Amitriptyline HCl 25 MG TABLET 50 MG PO (23:02)
[2020-06-01] MEDS: ARIPiprazole 10 MG TABLET PO (23:02)
[2020-06-01] MEDS: lamoTRIgine 100 MG TABLET 300 MG PO (23:03)
[2020-06-01 23:09] VITALS: BP 125/65; PULSE 86; TEMP 36.4
[2020-06-02] MEDS: Albuterol Sulfate 90 MCG 8 GM INHALER 2 PUFF INHALE (02:54)
[2020-06-02] MEDS: Melatonin 3 MG TABLET 6 MG PO (02:55)
[2020-06-02] MEDS: traZODone HCL 50 MG TABLET PO (02:55)
[2020-06-02 06:12] VITALS: BP 102/58; PULSE 77; RESP 16; TEMP 36.2; O2SAT 95
[2020-06-02] MEDS: Gabapentin 300 MG CAPSULE 900 MG PO ×3 (08:47→20:38)
[2020-06-02] MEDS: FLUoxetine HCl 20 MG CAPSULE PO (08:47)
[2020-06-02] MEDS: clonazePAM 1 MG TABLET PO ×3 (08:48→20:38)
[2020-06-02] MEDS: Fluticasone Propionate 100 MCG BLST.W.DEV 2 PUFF INHALE (08:49)
[2020-06-02] MEDS: Cyclobenzaprine HCl 10 MG TABLET PO ×2 (09:36→20:39)
[2020-06-02] MEDS: Fluticasone Propionate 250 MCG BLST.W.DEV 2 PUFF INHALE ×2 (12:38→20:41)
--- NOTE | 2020-06-02 13:17 | HO.PSYCHPN ---
Subjective Subjective Date of Service: 06/02/20 Reason For Visit: Bipolar depression Subjective Notes: Conditional Voluntary Interim History: Kayla has not been sleeping well. We agreed to increase the trazodone. She is also more irritable and finding it hard to tolerate being on the inpatient unit. She requests hydroxyzine for agitation. Medication Compliance: Yes Side effects from medications: No Attending Groups: Yes Review of Systems Acute medical concerns: No Medical Review of Systems: unchanged Mental Status Exam Mental Status Exam Patient Appearance: Appropriate Patient Orientation: Person, Place, Time and Situation Level of Consciousness: Awake and Appropriate Patient Behavior: Appropriate and Good Eye Contact Mood Description: Calm and Depressed Affect Description: Calm, Appropriate and Depressed Ability to Follow Directions: Excellent Speech Pattern: Clear Memory Description: Intact Hallucinations: None Delusions: Not Present Thought Process: Intact, Goal Oriented and Linear Thought Content: positive for Intact, negative for Suicidal Ideation and negative for Homicidal Ideation Depressive Symptoms: Insomnia and Crying Spells Judgement: Fair Judgement and Insight: appears intact Diagnostics Vital Signs (24Hr): Vital Signs - 24 hr 06/01/20 23:09 06/02/20 06:12 Temperature 97.5 F 97.1 F Pulse Rate 86 77 Respiratory Rate 16 Blood Pressure 125/65 102/58 L Pulse Oximetry 95 Body Mass Index 37.5 Labs Results: 05/23/20 16:28 05/23/20 16:28 Medications Medications Current Medications Generic Name Dose Route Start Last Admin Trade Name Freq PRN Reason Stop Dose Admin Acetaminophen 650 mg 05/23/20 21:23 06/01/20 10:23 Acetaminophen 325 Mg Tablet PO 650 mg Q6H PRN Administration Headache/Pain Mild Scale (1-3) Al Hydroxide/Mg Hydroxide 30 ml 05/23/20 21:23 Magnesium Hydrox/Alum Hydrox 30 Ml Oral.Susp PO Q6H PRN Heartburn/Nausea Albuterol Sulfate 2 puff 05/25/20 12:04 06/02/20 02:54 Albuterol Sulfate 90 Mcg 8 Gm Inhaler INHALE 2 puff RQ4H PRN Administration Shortness of Breath Amitriptyline HCl 50 mg 05/25/20 21:00 06/01/20 23:02 Amitriptyline Hcl 25 Mg Tablet PO 50 mg BEDTIME SASHA Administration Aripiprazole 10 mg 05/27/20 21:00 11/28/20 23:02 Aripiprazole 10 Mg Tablet PO 10 mg BEDTIME SASHA Administration Clonazepam 1 mg 05/29/20 21:00 06/02/20 08:48 Clonazepam 1 Mg Tablet PO 1 mg TID SASHA Administration Cyclobenzaprine HCl 10 mg 05/26/20 13:49 06/02/20 09:36 Cyclobenzaprine Hcl 10 Mg Tablet PO 10 mg TID PRN Administration fibromyalgia Fluoxetine HCl 20 mg 05/24/20 09:00 06/02/20 08:47 Fluoxetine Hcl 20 Mg Capsule PO 20 mg DAILY SASHA Administration Fluticasone Propionate 2 puff 06/02/20 10:20 06/02/20 12:38 Fluticasone Propionate 250 Mcg Blst.W.Dev INHALE 2 puff RBID SASHA Administration Gabapentin 900 mg 05/23/20 21:32 06/02/20 08:47 Gabapentin 300 Mg Capsule PO 900 mg TID SASHA Administration Lamotrigine 300 mg 05/24/20 21:00 06/01/20 23:03 Lamotrigine 100 Mg Tablet PO 300 mg BEDTIME SASHA Administration Lidocaine 1 patch 05/25/20 14:00 06/01/20 23:07 Lidocaine 4 % Patch Adh..Patch TRANSDERMA 1 patch DAILY PRN Administration lower back pain Protocol Magnesium Hydroxide 30 ml 05/23/20 21:23 05/29/20 21:24 Milk Of Magnesia 30 Ml Oral.Susp PO 30 ml DAILY PRN Administration Constipation Melatonin 6 mg 05/23/20 21:34 06/02/20 02:55 Melatonin 3 Mg Tablet PO 6 mg BEDTIME PRN Administration Insomnia Nicotine Polacrilex 4 mg 05/23/20 21:30 Nicotine Polacrilex 2 Mg Gum BUCCAL Q2H PRN Nicotine Cravings Topiramate 100 mg 05/23/20 21:32 06/01/20 23:02 Topiramate 100 Mg Tablet PO 100 mg BEDTIME SASHA Administration Trazodone HCl 100 mg 06/02/20 21:00 Trazodone Hcl 50 Mg Tablet PO BEDTIME MRX1 SASHA Allergies Allergies Allergy/AdvReac Type Severity Reaction Status Date / Time ibuprofen [Ibuprofen] Allergy Severe DIFFICULTY Unverified 03/21/20 17:02 BREATHING tramadol [Tramadol] Allergy Unknown RASH Unverified 03/21/20 17:02 Assessment & Plan Assessment & Plan (1) Bipolar 1 disorder, depressed, severe: Status: Acute Code(s): F31.4 - Bipolar disorder, current episode depressed, severe, without psychotic features Assessment and Plan: CT current treatment plan Greater than 50% of the session was spent on counseling and/or coordination of care Patient educated on: diagnosis and medication risk/benefits Informed Consent: further education needed Reason for contiued inpatient stay Substantial Risk for: harm to self and rapid decompensation
[2020-06-02] MEDS: hydrOXYzine HCL 25 MG TABLET PO (15:20)
[2020-06-02] MEDS: ARIPiprazole 10 MG TABLET PO (20:38)
[2020-06-02] MEDS: lamoTRIgine 100 MG TABLET 300 MG PO (20:38)
[2020-06-02] MEDS: Acetaminophen 325 MG TABLET 650 MG PO (20:39)
[2020-06-02] MEDS: Topiramate 100 MG TABLET PO (20:40)
[2020-06-02] MEDS: Amitriptyline HCl 25 MG TABLET 50 MG PO (20:40)
[2020-06-02] MEDS: traZODone HCL 50 MG TABLET 100 MG PO (20:42)
[2020-06-02 21:02] VITALS: BP 127/69; PULSE 93; TEMP 36.6
[2020-06-03] MEDS: Acetaminophen 325 MG TABLET 650 MG PO ×2 (05:34→21:31)
[2020-06-03] MEDS: Cyclobenzaprine HCl 10 MG TABLET PO ×3 (05:35→21:22)
[2020-06-03 05:40] VITALS: BP 147/75; PULSE 83; RESP 16; TEMP 36.5; O2SAT 99
[2020-06-03 07:09] VITALS: BP 125/77; PULSE 86; RESP 18
[2020-06-03] MEDS: clonazePAM 1 MG TABLET PO ×3 (09:02→21:21)
[2020-06-03] MEDS: Gabapentin 300 MG CAPSULE 900 MG PO ×3 (09:02→21:19)
[2020-06-03] MEDS: FLUoxetine HCl 20 MG CAPSULE PO (09:02)
[2020-06-03] MEDS: Fluticasone Propionate 250 MCG BLST.W.DEV 2 PUFF INHALE ×2 (09:03→21:23)
[2020-06-03] MEDS: Albuterol Sulfate 90 MCG 8 GM INHALER 2 PUFF INHALE (09:04)
--- NOTE | 2020-06-03 09:25 | HO.PSYCHPN ---
Subjective Subjective Date of Service: 06/03/20 Reason For Visit: Bipolar depression Subjective Notes: Conditional Voluntary Interim History: Although Kayla continues to have pain from fibromyalgia, she is less depressed and she has no SI. She is anxious to be DC in am. Medication Compliance: Yes Side effects from medications: No Attending Groups: Yes Review of Systems Acute medical concerns: No Medical Review of Systems: unchanged Mental Status Exam Mental Status Exam Patient Appearance: Appropriate Patient Orientation: Person, Place, Time and Situation Level of Consciousness: Awake and Appropriate Patient Behavior: Appropriate and Good Eye Contact Mood Description: Calm and Depressed Affect Description: Calm, Appropriate and Depressed Ability to Follow Directions: Excellent Speech Pattern: Clear Memory Description: Intact Hallucinations: None Delusions: Not Present Thought Process: Intact, Goal Oriented and Linear Thought Content: positive for Intact, negative for Suicidal Ideation and negative for Homicidal Ideation Depressive Symptoms: Insomnia and Crying Spells Judgement: Fair Judgement and Insight: appears intact Diagnostics Vital Signs (24Hr): Vital Signs - 24 hr 06/02/20 21:02 06/03/20 05:40 06/03/20 07:09 Temperature 97.9 F 97.7 F Pulse Rate 93 83 86 Respiratory Rate 16 18 Blood Pressure 127/69 147/75 H 125/77 Pulse Oximetry 99 Body Mass Index 37.5 Labs Results: 05/23/20 16:28 05/23/20 16:28 Medications Medications Current Medications Generic Name Dose Route Start Last Admin Trade Name Freq PRN Reason Stop Dose Admin Acetaminophen 650 mg 05/23/20 21:23 06/03/20 05:34 Acetaminophen 325 Mg Tablet PO 650 mg Q6H PRN Administration Headache/Pain Mild Scale (1-3) Al Hydroxide/Mg Hydroxide 30 ml 05/23/20 21:23 Magnesium Hydrox/Alum Hydrox 30 Ml Oral.Susp PO Q6H PRN Heartburn/Nausea Albuterol Sulfate 2 puff 05/25/20 12:04 06/03/20 09:04 Albuterol Sulfate 90 Mcg 8 Gm Inhaler INHALE 1 puff RQ4H PRN Administration Shortness of Breath Amitriptyline HCl 50 mg 05/25/20 21:00 06/02/20 20:40 Amitriptyline Hcl 25 Mg Tablet PO 50 mg BEDTIME SASHA Administration Aripiprazole 10 mg 05/27/20 21:00 06/02/20 20:38 Aripiprazole 10 Mg Tablet PO 10 mg BEDTIME SASHA Administration Clonazepam 1 mg 05/29/20 21:00 06/03/20 09:02 Clonazepam 1 Mg Tablet PO 1 mg TID SASHA Administration Cyclobenzaprine HCl 10 mg 05/26/20 13:49 06/03/20 05:35 Cyclobenzaprine Hcl 10 Mg Tablet PO 10 mg TID PRN Administration fibromyalgia Docusate Sodium 100 mg 06/02/20 16:51 Docusate Sodium 100 Mg Capsule PO BID PRN Constipation Fluoxetine HCl 20 mg 05/24/20 09:00 06/03/20 09:02 Fluoxetine Hcl 20 Mg Capsule PO 20 mg DAILY SASHA Administration Fluticasone Propionate 2 puff 06/02/20 10:20 06/03/20 09:03 Fluticasone Propionate 250 Mcg Blst.W.Dev INHALE 2 puff RBID SASHA Administration Gabapentin 900 mg 05/23/20 21:32 06/03/20 09:02 Gabapentin 300 Mg Capsule PO 900 mg TID SASHA Administration Hydroxyzine HCl 25 mg 06/02/20 13:18 06/02/20 15:20 Hydroxyzine Hcl 25 Mg Tablet PO 25 mg RQ4H PRN Administration Agitation Lamotrigine 300 mg 05/24/20 21:00 06/02/20 20:38 Lamotrigine 100 Mg Tablet PO 300 mg BEDTIME SASHA Administration Lidocaine 1 patch 05/25/20 14:00 06/01/20 23:07 Lidocaine 4 % Patch Adh..Patch TRANSDERMA 1 patch DAILY PRN Administration lower back pain Protocol Magnesium Hydroxide 30 ml 05/23/20 21:23 05/29/20 21:24 Milk Of Magnesia 30 Ml Oral.Susp PO 30 ml DAILY PRN Administration Constipation Melatonin 6 mg 05/23/20 21:34 06/02/20 02:55 Melatonin 3 Mg Tablet PO 6 mg BEDTIME PRN Administration Insomnia Nicotine Polacrilex 4 mg 05/23/20 21:30 Nicotine Polacrilex 2 Mg Gum BUCCAL Q2H PRN Nicotine Cravings Topiramate 100 mg 05/23/20 21:32 06/02/20 20:40 Topiramate 100 Mg Tablet PO 100 mg BEDTIME SASHA Administration Trazodone HCl 100 mg 06/02/20 21:00 06/03/20 05:14 Trazodone Hcl 50 Mg Tablet PO Not Given BEDTIME MRX1 SASHA Allergies Allergies Allergy/AdvReac Type Severity Reaction Status Date / Time ibuprofen [Ibuprofen] Allergy Severe DIFFICULTY Unverified 03/21/20 17:02 BREATHING tramadol [Tramadol] Allergy Unknown RASH Unverified 03/21/20 17:02 Assessment & Plan Assessment & Plan (1) Bipolar 1 disorder, depressed, severe: Status: Acute Code(s): F31.4 - Bipolar disorder, current episode depressed, severe, without psychotic features Assessment and Plan: CT current medication DC in am Greater than 50% of the session was spent on counseling and/or coordination of care Patient educated on: diagnosis and medication risk/benefits Informed Consent: further education needed Reason for contiued inpatient stay Substantial Risk for: rapid decompensation
[2020-06-03] MEDS: Lidocaine 4 % Patch ADH..PATCH 1 PATCH TRANSDERMA (09:27)
[2020-06-03 18:00] VITALS: BP 143/97; PULSE 86; TEMP 36.3
[2020-06-03] MEDS: Amitriptyline HCl 25 MG TABLET 50 MG PO (21:19)
[2020-06-03] MEDS: lamoTRIgine 100 MG TABLET 300 MG PO (21:19)
[2020-06-03] MEDS: Topiramate 100 MG TABLET PO (21:20)
[2020-06-03] MEDS: ARIPiprazole 10 MG TABLET PO (21:20)
[2020-06-03] MEDS: traZODone HCL 50 MG TABLET 100 MG PO (21:21)
[2020-06-04] MEDS: traZODone HCL 50 MG TABLET 100 MG PO (03:44)
[2020-06-04] MEDS: Albuterol Sulfate 90 MCG 8 GM INHALER 2 PUFF INHALE (08:55)
[2020-06-04] MEDS: Fluticasone Propionate 250 MCG BLST.W.DEV 2 PUFF INHALE (08:55)
--- NOTE | 2020-06-04 09:08 | P.DS_ITS ---
DS: Providers Provider Date of admission: 05/23/20 21:22 Date of discharge: 06/04/20 Primary care physician: Maurizio Mitchell MD Attending physician on admission: Hilda Patel Attending physician on discharge: Hilda Patel DS: Diagnosis Discharge Diagnosis (1) Bipolar 1 disorder, depressed, severe: Status: Acute DS: Medications Discharge Medications Home Medications: Previous Rx's Medication Instructions Recorded albuterol sulfate [Ventolin HFA] 2 puff INHALATION RQ4H PRN #1 kit 06/04/20 amitriptyline 50 mg PO BEDTIME #60 tab 06/04/20 aripiprazole 10 mg PO BEDTIME #30 tab 06/04/20 clonazepam 1 mg PO TID #90 tab 06/04/20 fluoxetine 20 mg PO DAILY #30 tab 06/04/20 fluticasone propionate [Flovent 2 puff INHALATION RBID #1 kit 06/04/20 Diskus] gabapentin 900 mg PO TID #180 cap 06/04/20 lamotrigine 300 mg PO BEDTIME #90 tab 06/04/20 lidocaine [Lidocaine Pain Relief] 1 patch TRANSDERMAL DAILY PRN #30 06/04/20 ea melatonin 6 mg PO BEDTIME PRN #60 tab 06/04/20 methocarbamol 500 mg PO BEDTIME PRN #30 tab 06/04/20 topiramate 100 mg PO BEDTIME #30 tab 06/04/20 trazodone 100 mg PO BEDTIME MRX1 #60 tab 06/04/20 Discharge Plan Discharge Patient Disposition: Home, Self-Care Referrals: Lois De Leon (therapist) [Other] - 06/07/20 (Please call/text Lois after discharge to confirm time of appointment on 06/07) Nisreen Lala (psychiatrist) [Other] - 07/02/20 8:20 am [facility]- PHP [Other] - 06/05/20 7:30 am (You will receive an email invite to your [employer] account for the intake which will occur via [employer]. The PHP will start at 9AM following the intake. ) Maurizio Mitchell MD [Primary Care Provider] - (DR. MITCHELL OFFICE WILL TRY TO CALL BACK WITH APPOINTMENT OR THEY WILL CALL PATIENT WITH HER APPOINTMENT DATE.) Discharge Medications: New lidocaine [Lidocaine Pain Relief] 4 % Adhesive Patch,Medicated 1 patch transdermal DAILY PRN (Reason: lower back pain) Qty: 30 RF: 0 trazodone 50 mg Tablet 100 mg PO BEDTIME MRX1 Qty: 60 RF: 0 clonazepam 1 mg Tablet 1 mg PO TID Qty: 90 RF: 0 melatonin 3 mg Tablet 6 mg PO BEDTIME PRN (Reason: Insomnia) Qty: 60 RF: 0 amitriptyline 25 mg Tablet 50 mg PO BEDTIME Qty: 60 RF: 0 albuterol sulfate [Ventolin HFA] 90 mcg/actuation Hfa Aerosol Inhaler 2 puff inhalation RQ4H PRN (Reason: Shortness Of Breath) Qty: 1 RF: 0 Flovent Diskus 250 mcg/actuation Blister With Device 2 puff inhalation RBID Qty: 1 RF: 0 lamotrigine 100 mg Tablet 300 mg PO BEDTIME Qty: 90 RF: 0 aripiprazole 10 mg Tablet 10 mg PO BEDTIME Qty: 30 RF: 0 Continued methocarbamol 500 mg Tablet 500 mg PO BEDTIME PRN (Reason: Muscle Spasm) Qty: 30 RF: 0 fluoxetine 20 mg Tablet 20 mg PO DAILY Qty: 30 RF: 0 gabapentin 300 mg Capsule 900 mg PO TID Qty: 180 RF: 0 topiramate 100 mg Tablet 100 mg PO BEDTIME Qty: 30 RF: 0 Discontinued lamotrigine 150 mg Tablet 150 mg PO BID RF: 0 amitriptyline 25 mg Tablet 50 mg PO BEDTIME PRN (Reason: Insomnia) RF: 0 hydroxyzine HCl 25 mg Tablet 25 mg PO BID RF: 0 melatonin 5 mg Tablet,Chewable 5 mg PO BEDTIME PRN (Reason: Insomnia) RF: 0 aripiprazole [Abilify] 2 mg tablet 2 mg PO BEDTIME Qty: 7 RF: 0 Discharge Orders: Discharge Order (Routine); Ordered 06/04/20 Ordered By: Hilda Patel Diet: advance to usual diet Activity on Discharge: As tolerated Stand Alone Forms: Community Support Visit Report Forms: Patient Portal Discharge page Care Plan Goals: Reduce depression Health Concerns: Depressed mood Suicidal thinking Plan of Treatment: Take your medication Go to your appointments Mental Status Exam Mental Status Exam Patient Appearance: Appropriate Patient Orientation: Person, Place, Time and Situation Level of Consciousness: Awake and Appropriate Patient Behavior: Appropriate and Good Eye Contact Mood Description: Calm and Depressed Affect Description: Calm, Appropriate and Depressed Ability to Follow Directions: Excellent Speech Pattern: Clear Memory Description: Intact Hallucinations: None Delusions: Not Present Thought Process: Intact, Goal Oriented and Linear Thought Content: positive for Intact, negative for Suicidal Ideation and negative for Homicidal Ideation Judgement: Fair Judgement and Insight: appears intact DS: Summary Hospital Course Hospital Course: 49 yo female, who has a history of bipolar disorder, who was referred by CARE team who saw her in the ER. She was referred by [facility] because on increasing t houghts of self harm. This is her first admission to , but one of many admissions. Hari was initially referred to PHP by her out patient prescriber, Nisreen Lala. Kayla has been increasingly depressed in the context of repeated failures at being able to work. She was told by her prescriber that she is unable to work and was encouraged to apply for disability. In addition her grandmother recently and this was the last straw for her. She was too depressed to participate in PHP and hence her referral for [facility]. She reports mood lability, explosive outbursts of anger leading to job instability with 5 job losses since 2018. She reports an increase in frequency and intensity since 2018. Recently, she was off meds September 2019 to March 18, 2020 due to job loss/insurance loss. When she restarted medicine regime she stopped Amberen, an OTC for menopausal sx and now reports mood and menopausal sx have exacerbated. She reports lability, feeling hopeless, fatigued, and wracked with guilt, nightmares, lack of interest and episodes where she feels explosive out of control feelings of anger. While at [facility] she was started on abilify. Past Psychiatric History: In Pt: Several Age 15, Tylenol overdose, BBR Age 16, Hung 2008 pt overdosed while in the ER due to lability [facility]-reports 5-7 admissions within 5-6 month period for mood No hx PHP/IOP OP: Lois Isidro-Individual, BEAU Lala-psychopharmacology Trials: Orlinda-toxicity hx with in pt admission Wellbutrin Seroquel-nightmares Kayla was admitted and she signed a CV. Initially she was quite anxious and dysregulated. She had been started on abilify in PHP and the dose was increased. As a result of ongoing anxiety and pain from fibromyalgia klonopin was added with moderate effect. Kayla debbie a lot support from staff and peers. She also spoke with her fiance daily and he was helpful. She experienced a gradual slowing of her thoughts of self harm, and her mood improved. She felt that she was ready to return to [facility], and a DC was planned. Medical Evaluation Reviewed: Yes Medically cleared for admission Status at Discharge Functional status at discharge: independent ambulation Overall status at discharge: patient is progressing back to baseline Time Spent with Patient Time attestation: Total time spent providing and/or coordinating discharge services:
[2020-06-04] MEDS: clonazePAM 1 MG TABLET PO ×2 (11:12→14:54)
[2020-06-04] MEDS: Cyclobenzaprine HCl 10 MG TABLET PO ×2 (11:13→14:34)
[2020-06-04] MEDS: Gabapentin 300 MG CAPSULE 900 MG PO ×2 (11:13→14:34)
[2020-06-04] MEDS: FLUoxetine HCl 20 MG CAPSULE PO (11:13)
[2020-06-04] MEDS: Acetaminophen 325 MG TABLET 650 MG PO (14:34)
[2020-06-04] MEDS: Lidocaine 4 % Patch ADH..PATCH 1 PATCH TRANSDERMA (14:35)
== END 2020-06-04 16:35 | disposition home or self-care (01) | DRG 753 ==
LOC: HO.ED 20:46 → HO.PM5 21:31
PROVIDERS: Emergency Medicine; Psychiatry & Neurology Psychiatry; Admitting Provider Psychiatry & Neurology Psychiatry; Emergency Provider Emergency Medicine; PCP Pediatrics; Visit Provider Psychiatry & Neurology Psychiatry
DX: F31.4 Bipolar disorder, current episode depressed, severe, without psychotic features (principal); R45.851 Suicidal ideations; G47.00 Insomnia, unspecified; J45.909 Unspecified asthma, uncomplicated; Z91.5 Personal history of self-harm; M79.7 Fibromyalgia; Z20.828 Contact with and (suspected) exposure to other viral communicable diseases; Z88.5 Allergy status to narcotic agent; Z88.6 Allergy status to analgesic agent; Z79.51 Long term (current) use of inhaled steroids; Z79.899 Other long term (current) drug therapy
CPT/HCPCS: 36415; 80048; 80061; 80076; 80307; 83036; 84443; 85025; 87635; 93005; 99232; 99285

== ENCOUNTER 2020-06-10 11:45 | Outpatient (RCR) | payer OTHER, SELFPAY ==
--- NOTE | 2020-06-05 08:20 | PC.NURSE ---
Pt was scheduled to attend an intake appt at 0730 with a same day start. At 0735, pt was not logged on, TW called pt. Pt answered immediately stating she was having issues as she could not find the email that was sent containing the link. TW copied the link and sent it in an email. Pt was able to log on at that point. As we moved through the assessment, pt presented as if she were intoxicated- TW asked pt if she had been drinking. Pt replied no- she has been sober for 2 years however her family thinks she's drunk but it is all the meds she was put on while [facility]. Assessment continued however pt kept shutting off the camera, dropping the phone, and continued to leave the meeting. At one point it took pt about 10 minutes to rejoin the meeting and TW had to call and resend the link again as she could not find the email. TW informed pt that at this point, there was not enough time to complete the assessment for her to begin the group at 9 and she would be unable to attend group in her current state of dysregulation. Pt agreeable. Assessment rescheduled to 06/06/20 at 0730 with a same day start. Will assess presentation and appropriateness at that point.
--- NOTE | 2020-06-06 13:14 | PC.ADMIT ---
Patient is a 50 year old female who returned to the [facility] program after d/c from where patient was admitted d/t increase in depression with thoughts to harm herself after the loss of her grandmother. Patient planned on going to [facility] ER after her grandmothers for a crisis evaluation. Pt has a hx of many [facility] admissions. Pt was initally admitted to [facility] on 05/09/20 as she was referred by her prescriber d/t mood instability, and significant anger issues. Patient has a hx of aggressive behaviors and legal involvement as a result. She is alert and oriented x3. Calm and cooperative. Stated she is at [facility] because, I need more therapy, for depression, anxiety, and grief. Patient is experiencing some confusion. Medications were lowered per Gee Pavon APRN. Spoke to patient and patient's , with patients's permission, and talked about the medication changes that were made and asked if could hold on to all of patients medications and distribute them to her until she is feeling more stable, less confused. Patient's Maurizio agreed to do this. Also educated them about Pre-packaged medication program that [facility] has and that they can sign up online to help with medication management when patient is feeling better. Patient denied SI or self harming thoughts at present. Gave verbal permission to email her a copy of her safety tool and patient agreed to utilized if needed. Patient also has the crisis number if needed. Medications reconciled with patient and D/C medication list.
[2020-06-06 13:37] VITALS: BMI 37.7
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
--- NOTE | 2020-06-10 09:24 | PC.NURSE ---
Patient c/o not feeling well. She reports dizziness, upset stomach, and decreased appetite. Stated she talked to her PCP about her symptoms and he thinks her symptoms are d/t her medications. She stated she has been feeling dizzy since d/c from inpatient stay. She stated her is giving her her medications and they have decreased the Topamax, Trazodone, and Klonopin per Gee Pavon APRN instructions. She stated she is going to the ER tomorrow if symptoms do not resolve. Gee Pavon APRN is aware and will contact the patient today.
--- NOTE | 2020-06-10 15:48 | HO.PHPPROGNO ---
Subjective Subjective Date of Service: 06/10/20 Reason For Visit: bipolar depression Interim History: Kayla reports no change in symptoms with medication decreases made last week (decreases of Klonopin, Topamax, Trazodone). Reports double vision, lethargy, asthma exacerbation, weakness, loss of balance, headache, low appetite, poor concentration, feeling hot and cold, anger with food stamps process, argument with boyfriends room-mate yesterday, and lability at times with specific circumstances. Encouraged COVID testing and discussed with pt and boyfriend holding Abilify tonight and decreasing Klonopin to 1 mg hs. As he is managing her medicines, he will implement. Pt tells team she plans to go to [facility] on 06/11/20 for appt. Offered to assist with DTA/food stamp application if she could get a paper copy to us which she will try to obtain. Medication Compliance: Yes Side effects from medications: Yes Attending Groups: Yes Review of Systems Constitutional: Reports malaise and Reports weakness Reports vertigo and Reports dizziness Respiratory: Reports other (asthma exacerbation) Musculoskeletal: Reports abnormal gait Reports abnormal gait, Reports behavioral changes, Reports vertigo, Reports dizziness, Reports lack of coordination, Reports Other visual disturbances (double vision) and Reports weakness Psychiatric: Reports behavioral changes, Reports difficulty concentrating, Reports irritability and Reports mood swings Mental Status Exam Mental Status Exam Patient Orientation: Person, Place, Time and Situation Level of Consciousness: Awake, Appropriate and Alert Patient Behavior: Appropriate Mood Description: Flat Affect Description: Flat Patient Cognition Impaired: No Ability to Follow Directions: Good Speech Pattern: Clear, Appropriate and Spontaneous Speech Memory Description: Intact Hallucinations: None Delusions: Not Present Thought Process: Intact and Goal Oriented Thought Content: positive for Intact Depressive Symptoms: Increased Anxiety, Increased Irritability and Loss of Energy Judgement: Good Diagnostics Vital Signs (24Hr): Body Mass Index 37.7 Assessment & Plan Assessment & Plan (1) Bipolar 1 disorder, depressed, severe: Status: Acute Code(s): F31.4 - Bipolar disorder, current episode depressed, severe, without psychotic features Assessment and Plan: Kayla continues to experience possible medication SE s/p hospitalization and decrease last week of Trazodone, Topamax and Klonopin. We will continue tapering today. - Hold Abilify tonight - Decrease Klonopin to 1 mg hs - Continue Amitriptyline, Prozac, Gabapentin, Lamictal, Melatonin as these were stable prior to admission. -Continue recently tapered dosages of Trazodone 50 mg hs prn MR x 1 prn, Topamax 50 mg daily -Will call pt on 06/11 to review symptoms. Certification I certify that partial hospital treatment is medically necessary due to the symptoms and problems resulting from the patient's mental illness and the failure to treat the patient at the partial hospital level of care would likely result in the patient requiring inpatient psychiatric care which could not be prevented at a less intensive level of care. Greater than 50% of the session was spent on counseling and/or coordination of care Discharge Plan Discharge Attending provider: Gian Gonzales Medications: No Action lidocaine [Lidocaine Pain Relief] 4 % Adhesive Patch,Medicated 1 patch transdermal DAILY PRN (Reason: lower back pain) Qty: 30 RF: 0 melatonin 3 mg Tablet 6 mg PO BEDTIME PRN (Reason: Insomnia) Qty: 60 RF: 0 amitriptyline 25 mg Tablet 50 mg PO BEDTIME Qty: 60 RF: 0 albuterol sulfate [Ventolin HFA] 90 mcg/actuation Hfa Aerosol Inhaler 2 puff inhalation RQ4H PRN (Reason: Shortness Of Breath) Qty: 1 RF: 0 Flovent Diskus 250 mcg/actuation Blister With Device 2 puff inhalation RBID Qty: 1 RF: 0 lamotrigine 100 mg Tablet 300 mg PO BEDTIME Qty: 90 RF: 0 aripiprazole 10 mg Tablet 10 mg PO BEDTIME Qty: 30 RF: 0 methocarbamol 500 mg Tablet 500 mg PO BEDTIME PRN (Reason: Muscle Spasm) Qty: 30 RF: 0 fluoxetine 20 mg Tablet 20 mg PO DAILY Qty: 30 RF: 0 gabapentin 300 mg Capsule 900 mg PO TID Qty: 180 RF: 0 clonazepam 1 mg Tablet 1 mg PO BID RF: 0 trazodone 100 mg Tablet 50 mg PO BEDTIME RF: 0 topiramate 100 mg Tablet 50 mg PO BEDTIME RF: 0
--- NOTE | 2020-06-11 09:33 | PC.NURSE ---
Patient did not show up at the 0900 morning meeting today. Called patient and she stated she is going to be going to [facility] today as she is not feeling well. She continues to c/o dizziness and stated she is in a lot of pain today d/t Fibromyalgia. I heard a male voice talking in the back round however unable to understand what was said. Patient agreed to call the program and update us on how she is feeling.
--- NOTE | 2020-06-12 08:29 | PC.NURSE ---
PHP received a message from pt reporting that she was at [facility] and may be admitted. The message cut off abruptly. TW called pt at 0830 checking in. Pt reported that she was medically admitted to [facility] and has undergone a CT scan and MRI. Pt reports that they may have found a lesion on her brain. Pt reports that she is unsure of when she will be discharged. Pt asked to update program if she is able. Pt encouraged to reach out to the program when she is feeling well to continue her treatmetn. Pt agreeable.
== END 2020-06-10 23:55 | disposition left against medical advice (07) ==
LOC: HO.PHPA 11:45
PROVIDERS: Visit Provider Psychiatry & Neurology Psychiatry
DX: F31.4 Bipolar disorder, current episode depressed, severe, without psychotic features (principal); Z79.899 Other long term (current) drug therapy
CPT/HCPCS: 90791; 90853; 99204; 99213